=== PATIENT | male | born 1965 | race American Indian/Alaskan Native ===

== ENCOUNTER 2021-05-04 03:50 | Inpatient (IN) | payer OTHER, MEDICARE ==
[2021-05-04 04:48] LABS: Basophils # (Auto) 0.1 K/mm3 (0.0-0.1); Eosinophils # (Auto) 0.1 K/mm3 (0.0-0.4); Eosinophils % (Auto) 0.9 % (0.0-4.3); Monocytes # (Auto) 0.8 K/mm3 (0.0-0.8); Monocytes % (Auto) 7.2 % (0.0-7.3)
[2021-05-04 05:09] LABS: Hematocrit 41.7 % (35.5-45.6); Hemoglobin 13.9 gm/dl (11.8-15.2); Mean Corpuscular HGB Conc 33 % (32-34); Mean Corpuscular Volume 92 fl (84-94); Platelet Count 180 K/mm3 (140-440); Red Blood Count 4.52 M/mm3 (3.65-5.03); Red Cell Distribution Width 13.4 % (13.2-15.2)
[2021-05-04 05:10] LABS: Basophils % (Auto) 0.6 % (0.0-1.8); Lymphocytes # (Auto) 1.8 K/mm3 (1.2-5.4); Lymphocytes % (Auto) 15.3 % (13.4-35.0)
--- NOTE | 2021-05-04 05:27 | XRay Report ---
CHEST 1 VIEW, 05/04/2021 4:34 AM CLINICAL INFORMATION/INDICATION: Chest pain COMPARISON: None. FINDINGS: SUPPORT DEVICES: None. HEART: The cardiac silhouette is mildly enlarged. LUNGS/PLEURA: There is bilateral perihilar interstitial prominence. No focal consolidation or large p leural effusion. ADDITIONAL FINDINGS: No additional acute findings. IMPRESSION: 1. Enlargement of the cardiac silhouette. 2. Perihilar interstitial prominence suggesting pulmonary vascular congestion without evidence of ove rt pulmonary edema. Signer Name: Grace Conway MD Signed: 05/04/2021 5:22 AM Workstation Name: [id number]
[2021-05-04 05:46] LABS: Alanine Aminotransferase 19 units/L (7-56); Albumin 4.3 g/dL (3.9-5); BUN/Creatinine Ratio 15; Blood Urea Nitrogen 19 mg/dL (9-20); Calcium 9.2 mg/dL (8.4-10.2); Hemolysis Index 15
[2021-05-04] MEDS ORDERED: FUROSEMIDE 40 MG/4 ML INJ IV ONE (07:35)
--- NOTE | 2021-05-04 07:37 | Emergency Department Report ---
HPI - General Chief Complaint: Chest Pain Time Seen by Provider: 05/04/21 07:24 - HPI HPI: 56-year-old male with past medical history significant for hypertension, DM 2, seizure disorder, and coronary artery disease status post cardiac bypass presents complaining of approximately 2 days of progressive dry cough and shortness of breath. He also reports that he has been sweating profusely over this time which caused him concerned. He noticed today that he was nauseated and had one episode of emesis. He stated that with the nausea and his other symptoms this feels just like his prior ME. He however denies any chest pain whatsoever. He also denies any associated headache, vision change, neck pain, back pain, syncope, palpitations, abdominal pain, or any other complaints. ED Past Medical Hx - Past Medical History Previous Medical History?: Yes Hx Hypertension: Yes Hx CVA: Yes (2017) Hx Heart Attack/AMI: Yes Hx Congestive Heart Failure: No Hx Diabetes: Yes Hx Deep Vein Thrombosis: No Hx Pulmonary Embolism: Yes (anx/dep) Hx GERD: No Hx Liver Disease: No Hx Renal Disease: No Hx of Cancer: No Hx Sickle Cell Disease: No Hx Arthritis: No Hx Seizures: No Hx Kidney Stones: No Hx Psychiatric Treatment: No Hx Asthma: No Hx COPD: No Hx Tuberculosis: No Hx Dementia: No Hx HIV: No - Surgical History Past Surgical History?: Yes Hx Coronary Stent: Yes (2007) Hx Open Heart Surgery: Yes (2007) Hx Pacemaker: No Hx Internal Defibrillator: No Hx Cholecystectomy: No Hx Appendectomy: No Hx Breast Surgery: No - Social History Smoking Status: Never Smoker Substance Use Type: None - Medications Home Medications: Home Medications Medication Instructions Recorded Confirmed Last Taken Type Aspirin [Aspirin BABY CHEW TAB] 81 mg PO QDAY 05/04/21 05/04/21 05/03/21 History Atorvastatin Calcium [Lipitor] 80 mg PO DAILY 05/04/21 05/04/21 05/03/21 History Metformin HCl [metFORMIN] 1,000 mg PO BID 05/04/21 05/04/21 05/03/21 History Metoprolol [Lopressor] 25 mg PO BID 05/04/21 05/04/21 05/03/21 History glipiZIDE [Glucotrol] 10 mg PO BID 05/04/21 05/04/21 05/03/21 History hydroCHLOROthiazide [HCTZ] 25 mg PO QDAY 05/04/21 05/04/21 05/03/21 History levETIRAcetam [Keppra TAB] 500 mg PO BID 05/04/21 05/04/21 05/03/21 History ED Review of Systems ROS: Stated complaint: SWEATS/SOB/SINUS PRESSURE Other details as noted in HPI Constitutional: denies: chills, fever Eyes: denies: eye pain, vision change ENT: denies: throat pain, congestion Respiratory: cough, shortness of breath Cardiovascular: denies: chest pain, syncope Gastrointestinal: nausea, vomiting. denies: abdominal pain Musculoskeletal: denies: back pain, myalgia Skin: denies: rash Neurological: denies: headache, weakness, numbness Physical Exam - Physical Exam Vital Signs: Vital Signs 05/04/21 05/04/21 03:57 04:01 Temperature 99.0 F 99.0 F Pulse Rate 107 H Respiratory 16 14 Rate Blood Pressure 199/138 199/138 O2 Sat by Pulse 94 Oximetry Physical Exam: GENERAL: Well developed and well nourished. HEENT: Normocephalic. No obvious signs of trauma. Moist mucous membranes. EYES: Extraocular movements are intact. Pupils are equal round and reactive to light bilaterally NECK: Supple. Trachea is midline. LUNGS: Very tachypneic but not in distress. Equal chest rise bilaterally. There are bibasilar rales up to the mid lungs. HEART/CARDIOVASCULAR: Tachycardic but with regular rhythm. No murmurs or rubs. VASCULAR: 2+ peripheral pulses. Cap refill < 2 seconds. Bilateral lower extremities with 2+ pitting edema ABDOMEN: Abdomen is soft and nondistended. There is no significant tenderness, guarding or rebound. SKIN: Skin is warm and dry NEURO: Patient is awake, alert, and oriented. neuroscience director na II-XII grossly intact. No focal deficits. Normal motor and sensory exam throughout. Normal speech. MUSCULOSKELETAL: No obvious deformities. No significant tenderness. Normal ROM throughout. BACK/SPINE: No midline tenderness or step-offs of the C/T/L spine. ED Course Vital Signs 05/04/21 05/04/21 03:57 04:01 Temperature 99.0 F 99.0 F Pulse Rate 107 H Respiratory 16 14 Rate Blood Pressure 199/138 199/138 O2 Sat by Pulse 94 Oximetry ED Medical Decision Making - Lab Data Result diagrams: 05/04/21 04:29 05/04/21 04:29 Labs 05/04/21 05/04/21 05/04/21 04:29 04:29 07:17 WBC 11.8 H RBC 4.52 Hgb 13.9 Hct 41.7 MCV 92 MCH 31 MCHC 33 RDW 13.4 Plt Count 180 Lymph % (Auto) 15.3 [place] % (Auto) 7.2 Eos % (Auto) 0.9 Baso % (Auto) 0.6 Lymph # (Auto) 1.8 [place] # (Auto) 0.8 Eos # (Auto) 0.1 Baso # (Auto) 0.1 Seg Neutrophils % 76.0 H Seg Neutrophils # 8.9 H Sodium 142 Potassium 4.1 Chloride 104.6 Carbon Dioxide 19 L Anion Gap 23 BUN 19 Creatinine 1.3 Estimated GFR 58 BUN/Creatinine Ratio 15 Glucose 229 H Calcium 9.2 Total Bilirubin 0.50 AST 16 ALT 19 Alkaline Phosphatase 91 Troponin T < 0.010 0.115 H* D NT-Pro-B Natriuret Pep Total Protein 6.9 Albumin 4.3 Albumin/Globulin Ratio 1.7 05/04/21 07:17 WBC RBC Hgb Hct MCV MCH MCHC RDW Plt Count Lymph % (Auto) [place] % (Auto) Eos % (Auto) Baso % (Auto) Lymph # (Auto) [place] # (Auto) Eos # (Auto) Baso # (Auto) Seg Neutrophils % Seg Neutrophils # Sodium Potassium Chloride Carbon Dioxide Anion Gap BUN Creatinine Estimated GFR BUN/Creatinine Ratio Glucose Calcium Total Bilirubin AST ALT Alkaline Phosphatase Troponin T NT-Pro-B Natriuret Pep 2789 H Total Protein Albumin Albumin/Globulin Ratio - EKG Data -: EKG Interpreted by Sc - EKG Data 05/04/21 07:38 Normal sinus rhythm. Normal axis. Right bundle branch block. Otherwise normal intervals. No significant ST segment abnormalities. Inverted T waves associated with right bundle branch block noted - Radiology Data CHEST 1 VIEW, 05/04/2021 4:34 AM CLINICAL INFORMATION/INDICATION: Chest pain COMPARISON: None. FINDINGS: SUPPORT DEVICES: None. HEART: The cardiac silhouette is mildly enlarged. LUNGS/PLEURA: There is bilateral perihilar interstitial prominence. No focal consolidation or large pleural effusion. ADDITIONAL FINDINGS: No additional acute findings. IMPRESSION: 1. Enlargement of the cardiac silhouette. 2. Perihilar interstitial prominence suggesting pulmonary vascular congestion without evidence of overt pulmonary edema. Signer Name: Grace Conway MD Signed: 05/04/2021 4:22 AM Workstation Name: [id number] - Medical Decision Making 56-year-old male with history of CAD presents complaining of 2 days of progressive dry cough, shortness of breath, and diaphoresis as well as 1 episode of nausea plus vomiting this a.m. which prompted the patient to come to the emergency room because he says this feels just like his prior ME. On initial assessment, the patient is tachypneic but not in distress. Physical examination reveals 2+ pitting edema bilateral lower extremities as well as bilateral basilar rales. Work-up in triage consisted of labs and x-ray. His labs are notable for bicarb of 19. His creatinine is 1.3 from unknown baseline. Chest x-ray reveals bilateral perihilar interstitial prominence and cardiomegaly typical of CHF with pulmonary edema. Initial troponin is negative. He is afebrile and with normal vital signs. He is not tachycardic. His oxygen saturation is normal on room air. Nonetheless, I will order repeat tropes as well as BNP. We will administer 40 mg of IV Lasix and 162 mg of aspirin. At 8:40 AM, I was informed that the patient's second troponin level is elevated at 0.11 with normal creatinine. We will start heparin drip for NSTEMI. On repeat assessment of the patient at 8:55 AM, he reports that he feels much better. His symptoms are almost resolved. Nonetheless in the setting of his positive troponin will admit to medicine for further work-up and management of possible ME and likely new onset CHF. All this was discussed with the patient who expressed understanding agreement with the plan of care. Critical care attestation.: If time is entered above; I have spent that time in minutes in the direct care of this critically ill patient, excluding procedure time. ED Disposition Clinical Impression: Non-ST elevated myocardial infarction, Hyperglycemia Acute exacerbation of congestive heart failure Qualifiers: Heart failure type: unspecified Qualified Code(s): I50.9 - Heart failure, unspecified Disposition: OP ADMIT IP TO THIS HOSP Is pt being admited?: Yes Condition: Stable Referrals: YOANDY RIVERA MD [Primary Care Provider] - 3-5 Days
[2021-05-04] MEDS ORDERED: NITROGLYCERIN 0.4 MG TAB SUBL SL ONE (07:41)
[2021-05-04] MEDS ORDERED: ASPIRIN 81 MG TAB CHEW PO ONE (07:42)
[2021-05-04] MEDS ORDERED: HEPARIN 10,000 UNITS/10 ML VIAL IV PRN ×2 (08:58→15:47)
[2021-05-04 09:07] LABS: Chol/HDL Ratio 2.03 %
[2021-05-04 10:50] LABS: INR 0.98 (0.87-1.13)
[2021-05-04 10:51] LABS: Partial Thromboplastin Time 36.4 Sec. (24.2-36.6)
--- NOTE | 2021-05-04 11:05 | History and Physical Report ---
History of Present Illness Date of examination: 05/04/21 Date of admission: 05/04/21 Chief complaint: Acute chest pain History of present illness: 56-year-old -[place] male with a past medical history of CAD with history of CABG x3 in 2007, heart failure unspecified, DM2, hypertension, hyperlipidemia, seizure disorder, who presents with acute chest pain. Patient states in the last 12 hours, started to have substernal chest pain, more so on the left side, nonradiating, 4/10 pain, dull and sharp, intermittent, worse with coughing. This morning patient started to have diaphoresis, decided to come to the emergency department, had emesis x1, no hematemesis, no weakness in upper or lower extremities, no visual changes, no seizure activity. Came to [facility] for evaluation, Blood pressure 170/98, heart rate 80, respiratory rate up to 35. Labs significant for elevated troponin of 0.115. proBNP 2789. Chest x-ray did show pulmonary congestion, EKG showed right bundle branch block with some T wave inversion. Patient was started on heparin drip, cardiology was consulted for NSTEMI, patient given nitro and furosemide. P atient states last stress test was about 2 years ago at the [place] in [facility]. Past History Past Medical History: other (Heart failure unspecified, CAD, DM2, HTN, HLD, seizure disorder) Past Surgical History: Other (CABG x3 in 2007) Social history: other (Never smoker, patient drinks 1 beer a night, no illicit drug use) Family history: other (CAD, diabetes mellitus type 2, hypertension) Medications and Allergies Allergies Allergy/AdvReac Type Severity Reaction Status Date / Time No Known Allergies Allergy Unverified 05/04/21 04:11 Home Medications Medication Instructions Recorded Confirmed Last Taken Type Aspirin [Aspirin BABY CHEW TAB] 81 mg PO QDAY 05/04/21 05/04/21 05/03/21 History Atorvastatin Calcium [Lipitor] 80 mg PO DAILY 05/04/21 05/04/21 05/03/21 History Metformin HCl [metFORMIN] 1,000 mg PO BID 05/04/21 05/04/21 05/03/21 History Metoprolol [Lopressor] 25 mg PO BID 05/04/21 05/04/21 05/03/21 History glipiZIDE [Glucotrol] 10 mg PO BID 05/04/21 05/04/21 05/03/21 History hydroCHLOROthiazide [HCTZ] 25 mg PO QDAY 05/04/21 05/04/21 05/03/21 History levETIRAcetam [Keppra TAB] 500 mg PO BID 05/04/21 05/04/21 05/03/21 History Active Meds: Active Medications Acetaminophen (Acetaminophen 325 Mg Tab) 650 mg PO Q4H PRN PRN Reason: Pain MILD(1-3)/Fever >100.5/ZIEGLER Atorvastatin Calcium (Atorvastatin 40 Mg Tab) 80 mg PO QHS BRENDA Furosemide (Furosemide 40 Mg/4 Ml Inj) 40 mg IV BID BRENDA Stop: 05/07/21 21:59 Heparin Sodium (Porcine) (Heparin 10,000 Units/10 Ml Vial) 3,300 unit 40 unit/kg (3300 unit) IV Q6H PRN PRN Reason: Anti-Xa Assay<0.1 units/ml Last Admin: 05/04/21 09:48 Dose: 3,300 unit Documented by: Hydralazine HCl (Hydralazine 20 Mg/1 Ml Inj) 10 mg IV Q3HR PRN PRN Reason: Blood Pressure Hydrochlorothiazide (Hydrochlorothiazide 25 Mg Tab) 25 mg PO QDAY [facility] Labetalol HCl (Labetalol 20 Mg/4 Ml Inj) 10 mg IV ONCE ONE Stop: 05/04/21 11:00 Levetiracetam (Levetiracetam 500 Mg Tab) 500 mg PO BID [facility] Lisinopril (Lisinopril 20 Mg Tab) 20 mg PO DAILY [facility] Metoprolol Tartrate (Metoprolol Tartrate 25 Mg Tab) 25 mg PO BID [facility] Morphine Sulfate (Morphine 4 Mg/1 Ml Inj) 4 mg IV Q4H PRN PRN Reason: Pain , Severe (7-10) Naloxone HCl (Naloxone 0.4 Mg/1 Ml Inj) 0.1 mg IV Q2MIN PRN PRN Reason: Res Rate </= 8 or 02 SAT < 92% Ondansetron HCl (Ondansetron 4 Mg/2 Ml Inj) 4 mg IV Q8H PRN PRN Reason: Nausea And Vomiting Oxycodone/Acetaminophen (Oxycodone /Acetaminophen 5-325mg Tab) 1 tab PO Q6H PRN PRN Reason: Pain, Moderate (4-6) Sodium Chloride (Sodium Chloride 0.9% 10 Ml Flush Syringe) 10 ml IV BID BRENDA Sodium Chloride (Sodium Chloride 0.9% 10 Ml Flush Syringe) 10 ml IV PRN PRN PRN Reason: LINE FLUSH Review of Systems All systems: negative Cardiovascular: chest pain Gastrointestinal: nausea, vomiting Exam - Physical Exam Narrative exam: General appearance: no acute distress, well-nourished EENT: PERRL, EOM intact, hearing intact, clear oral mucosa Neck: Present: supple, normal ROM Respiratory: Minimal crackles heard in left lower lung base. No wheezes, no rales Cardiovascular: Regular rate/rhythm, Normal S1 & S2. No gallop, rub Extremities: no ischemia, bilateral +1 pitting edema in lower extremities, normal temperature, normal color, Full ROM Abdominal: soft, no tenderness, non-distended, normal bowel sounds Integumentary: Present: clear, warm, dry no wounds, no erythema noted Psychiatric: appropriate mood/affect, intact judgment & insight Neurologic: CNII-XII intact, moves all extremities, no sensory or motor ab normalities - Constitutional Vitals: Temp Pulse Resp BP Pulse Ox 99.0 F 84 33 H 170/100 95 05/04/21 04:01 05/04/21 09:07 05/04/21 09:00 05/04/21 09:07 05/04/21 09:00 HEART Score - HEART Score Troponin: Troponin T 0.115 ng/mL (0.00-0.029) H* D 05/04/21 07:17 Results - Labs CBC & Chem 7: 05/04/21 04:29 05/04/21 04:29 Labs: Laboratory Last Values WBC 11.8 K/mm3 (4.5-11.0) H 05/04/21 04:29 RBC 4.52 M/mm3 (3.65-5.03) 05/04/21 04:29 Hgb 13.9 gm/dl (11.8-15.2) 05/04/21 04:29 Hct 41.7 % (35.5-45.6) 05/04/21 04:29 MCV 92 fl (84-94) 05/04/21 04:29 MCH 31 pg (28-32) 05/04/21 04:29 MCHC 33 % (32-34) 05/04/21 04:29 RDW 13.4 % (13.2-15.2) 05/04/21 04:29 Plt Count 180 K/mm3 (140-440) 05/04/21 04:29 Lymph % (Auto) 15.3 % (13.4-35.0) 05/04/21 04:29 [place] % (Auto) 7.2 % (0.0-7.3) 05/04/21 04:29 Eos % (Auto) 0.9 % (0.0-4.3) 05/04/21 04:29 Baso % (Auto) 0.6 % (0.0-1.8) 05/04/21 04:29 Lymph # (Auto) 1.8 K/mm3 (1.2-5.4) 05/04/21 04:29 [place] # (Auto) 0.8 K/mm3 (0.0-0.8) 05/04/21 04:29 Eos # (Auto) 0.1 K/mm3 (0.0-0.4) 05/04/21 04:29 Baso # (Auto) 0.1 K/mm3 (0.0-0.1) 05/04/21 04:29 Seg Neutrophils % 76.0 % (40.0-70.0) H 05/04/21 04:29 Seg Neutrophils # 8.9 K/mm3 (1.8-7.7) H 05/04/21 04:29 PT 13.6 Sec. (12.2-14.9) 05/04/21 09:38 INR 0.98 (0.87-1.13) 05/04/21 09:38 APTT 36.4 Sec. (24.2-36.6) 05/04/21 09:38 Sodium 142 mmol/L (137-145) 05/04/21 04:29 Potassium 4.1 mmol/L (3.6-5.0) 05/04/21 04:29 Chloride 104.6 mmol/L (98-107) 05/04/21 04:29 Carbon Dioxide 19 mmol/L (22-30) L 05/04/21 04:29 Anion Gap 23 mmol/L 05/04/21 04:29 BUN 19 mg/dL (9-20) 05/04/21 04:29 Creatinine 1.3 mg/dL (0.8-1.3) 05/04/21 04:29 Estimated GFR 58 ml/min 05/04/21 04:29 BUN/Creatinine Ratio 15 % 05/04/21 04:29 Glucose 229 mg/dL (75-100) H 05/04/21 04:29 Calcium 9.2 mg/dL (8.4-10.2) 05/04/21 04:29 Total Bilirubin 0.50 mg/dL (0.1-1.2) 05/04/21 04:29 AST 16 units/L (5-40) 05/04/21 04:29 ALT 19 units/L (7-56) 05/04/21 04:29 Alkaline Phosphatase 91 units/L (35-129) 05/04/21 04:29 Troponin T 0.115 ng/mL (0.00-0.029) H* D 05/04/21 07:17 NT-Pro-B Natriuret Pep 2789 pg/mL (0-900) H 05/04/21 07:17 Total Protein 6.9 g/dL (6.3-8.2) 05/04/21 04:29 Albumin 4.3 g/dL (3.9-5) 05/04/21 04:29 Albumin/Globulin Ratio 1.7 % 05/04/21 04:29 Triglycerides 68 mg/dL (2-149) 05/04/21 07:17 Cholesterol 110 mg/dL (50-199) 05/04/21 07:17 LDL Cholesterol Direct 54 mg/dL (50-130) 05/04/21 07:17 HDL Cholesterol 54 mg/dL (40-59) 05/04/21 07:17 Cholesterol/HDL Ratio 2.03 % 05/04/21 07:17 Assessment and Plan Assessment and plan: 56-year-old -[place] male with past medical history as above who presents with acute chest pain NSTEMI type I versus type II History of CABG x3 in 2007 Mild elevated troponin Patient started on heparin drip EKG reviewed, no STEMI, right bundle branch block noted Cardiology consulted will await recommendations pertaining to diagnostic tests Heart failure unspecified Elevated BNP Cardiology consulted, patient will most likely need a echocardiogram Furosemide 40 mg twice daily daily Diabetes mellitus type 2 Pending A1c Insulin sliding scale Hypertension Labetalol IV and hydralazine IV as needed with parameters Continue lisinopril, metoprolol, hydrochlorothiazide History of seizure disorder Levetiracetam 500 mg twice daily IV DVT prophylaxis: Heparin drip CODE STATUS: Full Disposition: Continue to evaluate patient for NSTEMI, cardiology recommendations pending. VTE prophylaxis?: Chemical Plan of care discussed with patient/family: Yes
[2021-05-04] MEDS ORDERED: DEXTROSE 50% IN WATER (25GM) 50 ML SYRINGE IV PRN (11:22)
[2021-05-04] MEDS ORDERED: INSULIN LISPRO 100 UNIT/ML SUB-Q ONE (11:25)
[2021-05-04] MEDS ORDERED: hydroCHLOROthiazide 25 MG TAB PO SCH (11:30)
[2021-05-04] MEDS: LISINOPRIL 20 MG TAB PO SCH (11:35)
[2021-05-04] MEDS ORDERED: ONDANSETRON 4 MG/2 ML INJ IV PRN (12:00)
[2021-05-04] MEDS ORDERED: NITROGLYCERIN 0.4 MG TAB SUBL SL PRN (12:00)
[2021-05-04] MEDS ORDERED: levETIRAcetam 500 MG TAB PO SCH (12:00)
[2021-05-04] MEDS ORDERED: MORPHINE 4 MG/1 ML INJ IV PRN (12:00)
[2021-05-04] MEDS ORDERED: NALOXONE 0.4 MG/1 ML INJ IV PRN (12:00)
[2021-05-04] MEDS: INSULIN REGULAR, HUMAN 100 UNITS/1 ML SUB-Q SCH ×3 (12:23→22:24)
[2021-05-04] MEDS ORDERED: oxyCODONE /ACETAMINOPHEN 5-325MG TAB PO PRN (13:00)
[2021-05-04] MEDS: hydrALAZINE 20 MG/1 ML INJ IV PRN ×2 (15:08→21:23)
--- NOTE | 2021-05-04 15:33 | Consultation ---
History of Present Illness Consult date: 05/04/21 Requesting physician: SHELL WHITE Consult reason: chest pain, elevated troponin History of present illness: This patient is a 56-year-old male with a significant history of coronary artery disease and AMI with CABG x3 in 2007, heart failure, diabetes, hypertension, hyper lipid, seizure disorder. He is previously unknown to our practice and is not followed by cardiology. He is followed by Dr. Miramontes PCP with [place] [facility]. Patient presents to [facility] after episode of chest pain woke him from sleep last night. Patient describes chest pain as same as he felt with last AMI, substernal to left-sided chest pain, nonradiating, 4 out of 10, dull, intermittent, worse with cough. Initial troponin was negative but subsequent troponins have elevated to NSTEMI. At time of interview patient is chest pain-free having resolved after nitroglycerin administration and denies any weakness, dizziness, shortness of breath, abdominal pain, N/V/D, recent illness or known exposure. Patient states he underwent cardiac stress testing approximately 2 years ago with negative results. He has recently moved here from [facility] and has not established himself with local healthcare co ovid. BNP is noted to be elevated on admission. Past History Past Medical History: other (Heart failure unspecified, CAD, DM2, HTN, HLD, seizure disorder) Past Surgical History: Other (CABG x3 in 2007) Social history: other (Never smoker, patient drinks 1 beer a night, no illicit drug use) Family history: other (CAD, diabetes mellitus type 2, hypertension) Medications and Allergies Allergies Allergy/AdvReac Type Severity Reaction Status Date / Time No Known Allergies Allergy Unverified 05/04/21 04:11 Home Medications Medication Instructions Recorded Confirmed Last Taken Type Aspirin [Aspirin BABY CHEW TAB] 81 mg PO QDAY 05/04/21 05/04/21 05/03/21 History Atorvastatin Calcium [Lipitor] 80 mg PO DAILY 05/04/21 05/04/21 05/03/21 History Metformin HCl [metFORMIN] 1,000 mg PO BID 05/04/21 05/04/21 05/03/21 History Metoprolol [Lopressor] 25 mg PO BID 05/04/21 05/04/21 05/03/21 History glipiZIDE [Glucotrol] 10 mg PO BID 05/04/21 05/04/21 05/03/21 History hydroCHLOROthiazide [HCTZ] 25 mg PO QDAY 05/04/21 05/04/21 05/03/21 History levETIRAcetam [Keppra TAB] 500 mg PO BID 05/04/21 05/04/21 05/03/21 History Active Meds: Active Medications Acetaminophen (Acetaminophen 325 Mg Tab) 650 mg PO Q4H PRN PRN Reason: Pain MILD(1-3)/Fever >100.5/ZIEGLER Atorvastatin Calcium (Atorvastatin 40 Mg Tab) 80 mg PO QHS [facility] Dextrose (Dextrose 50% In Water (25gm) 50 Ml Syringe) 50 ml IV Q30MIN PRN; Protocol PRN Reason: Hypoglycemia Furosemide (Furosemide 40 Mg/4 Ml Inj) 40 mg IV BID [facility] Stop: 05/07/21 21:59 Heparin Sodium (Porcine) (Heparin 10,000 Units/10 Ml Vial) 3,300 unit 40 unit/kg (3300 unit) IV Q6H PRN PRN Reason: Anti-Xa Assay<0.1 units/ml Last Admin: 05/04/21 09:48 Dose: 3,300 unit Documented by: Hydralazine HCl (Hydralazine 20 Mg/1 Ml Inj) 10 mg IV Q3H PRN PRN Reason: Blood Pressure Last Admin: 05/04/21 15:08 Dose: 10 mg Documented by: Hydrochlorothiazide (Hydrochlorothiazide 25 Mg Tab) 25 mg PO QDAY [facility] Last Admin: 05/04/21 11:35 Dose: 25 mg Documented by: Levetiracetam 500 mg/ Dextrose 105 mls @ 400 mls/hr IV Q12HR [facility] Insulin Human Regular (Insulin Regular, Human 100 Units/1 Ml) 0 units SUB-Q ACHS [facility]; Protocol Last Admin: 05/04/21 12:23 Dose: Not Given Documented by: Lisinopril (Lisinopril 20 Mg Tab) 20 mg PO DAILY [facility] Last Admin: 05/04/21 11:35 Dose: 20 mg Documented by: Metoprolol Tartrate (Metoprolol Tartrate 25 Mg Tab) 25 mg PO BID [facility] Morphine Sulfate (Morphine 4 Mg/1 Ml Inj) 4 mg IV Q4H PRN PRN Reason: Pain , Severe (7-10) Naloxone HCl (Naloxone 0.4 Mg/1 Ml Inj) 0.1 mg IV Q2MIN PRN PRN Reason: Res Rate </= 8 or 02 SAT < 92% Nitroglycerin (Nitroglycerin 0.4 Mg Tab Subl) 0.4 mg SL .Q5MIN PRN PRN Reason: Chest Pain Ondansetron HCl (Ondansetron 4 Mg/2 Ml Inj) 4 mg IV Q8H PRN PRN Reason: Nausea And Vomiting Oxycodone/Acetaminophen (Oxycodone /Acetaminophen 5-325mg Tab) 1 tab PO Q6H PRN PRN Reason: Pain, Moderate (4-6) Sodium Chloride (Sodium Chloride 0.9% 10 Ml Flush Syringe) 10 ml IV BID BRENDA Sodium Chloride (Sodium Chloride 0.9% 10 Ml Flush Syringe) 10 ml IV PRN PRN PRN Reason: LINE FLUSH Review of Systems Constitutional: no weight loss, no weight gain, no fever, no chills, no sweats Ears, nose, mouth and throat: no ear pain, no ear discharge, no decreased hearing, no nose pain, no nasal congestion, no nasal discharge Cardiovascular: chest pain, no orthopnea, no palpitations, no rapid/irregular heart beat, no edema, no syncope, no lightheadedness, no shortness of breath, no dyspnea on exertion, no paroxysmal nocturnal dyspnea, no claudication, no phlebitis, no high blood pressure, no leg edema Respiratory: cough, no hemoptysis, no shortness of breath, no dyspnea on exertion Gastrointestinal: no abdominal pain, no nausea, no vomiting, no diarrhea Genitourinary Male: no flank pain Musculoskeletal: no neck stiffness, no neck pain, no shooting arm pain, no arm numbness/tingling, no low back pain Integumentary: no rash, no pruritis, no redness, no sores, no wounds Neurological: no head injury, no paralysis, no weakness, no parathesias, no numbness, no tingling, no seizures, no syncope Psychiatric: no anxiety Endocrine: no cold intolerance, no heat intolerance Hematologic/Lymphatic: no easy bruising, no easy bleeding Allergic/Immunologic: no urticaria Physical Examination Last Vital Signs Temp 99.0 F 05/04/21 04:01 Pulse 88 05/04/21 15:08 Resp 22 05/04/21 15:00 BP 188/92 05/04/21 15:08 Pulse Ox 98 05/04/21 15:00 General appearance: no acute distress HEENT: Positive: PERRL, Normocephaly, Mucus Membranes Moist Neck: Positive: neck supple, trachea midline Cardiac: Positive: Reg Rate and Rhythm, S1/S2 Lungs: Positive: Normal Exam, Normal Breath Sounds Neuro: Positive: Grossly Intact Abdomen: Positive: Unremarkable, Soft Skin: Negative: Rash, Wound Musculoskeletal: No Pain Extremities: Present: upper extr. pulses, lower extr. pulses, +1 Edema Results 05/04/21 04:29 05/04/21 04:29 Cardiac Enzymes 05/04/21 Range/Units 04:29 AST 16 (5-40) units/L Coagulation 05/04/21 Range/Units 09:38 PT 13.6 (12.2-14.9) Sec. INR 0.98 (0.87-1.13) APTT 36.4 (24.2-36.6) Sec. Lipids 05/04/21 Range/Units 07:17 Triglycerides 68 (2-149) mg/dL Cholesterol 110 (50-199) mg/dL HDL Cholesterol 54 (40-59) mg/dL Cholesterol/HDL Ratio 2.03 % CBC 05/04/21 Range/Units 04:29 WBC 11.8 H (4.5-11.0) K/mm3 RBC 4.52 (3.65-5.03) M/mm3 Hgb 13.9 (11.8-15.2) gm/dl Hct 41.7 (35.5-45.6) % Plt Count 180 (140-440) K/mm3 Lymph # (Auto) 1.8 (1.2-5.4) K/mm3 [place] # (Auto) 0.8 (0.0-0.8) K/mm3 Eos # (Auto) 0.1 (0.0-0.4) K/mm3 Baso # (Auto) 0.1 (0.0-0.1) K/mm3 Comprehensive Metabolic Panel 05/04/21 Range/Units 04:29 Sodium 142 (137-145) mmol/L Potassium 4.1 (3.6-5.0) mmol/L Chloride 104.6 (98-107) mmol/L Carbon Dioxide 19 L (22-30) mmol/L BUN 19 (9-20) mg/dL Creatinine 1.3 (0.8-1.3) mg/dL Glucose 229 H (75-100) mg/dL Calcium 9.2 (8.4-10.2) mg/dL AST 16 (5-40) units/L ALT 19 (7-56) units/L Alkaline Phosphatase 91 (35-129) units/L Total Protein 6.9 (6.3-8.2) g/dL Albumin 4.3 (3.9-5) g/dL - Imaging and Cardiology Echo: pending EKG interpretations - Telemetry EKG Rhythm: Sinus Tachycardia - EKG Sinus rhythms and dysrhythmias: sinus rhythm AV and intraventricular conduction: right bundle branch block Assessment and Plan Chest pain in setting of NSTEMI and significant history of CAD, AMI with CABG x3 * Patient experiencing typical chest pain which resolved after nitro admin istration. Initiate Imdur 30 mg daily * Troponins are elevated and trending upward. Continue to trend CE's * Repeat serial 12 leads * Plan for cardiac cath on Sunday. Initiate heparin drip standard intensity titration. N.p.o. after midnight tomorrow. Acute on chronic heart failure in setting of cardiomyopathy * Echocardiogram is pending * Bilateral lower extremity edema 1-2+ is noted. * Optimize volume control. Discontinue hydrochlorothiazide, continue Lasix 40 mg IV twice daily. Repeat BMP in a.m. Hypertension * Optimize antihypertensive regimen: Increase metoprolol to 50 mg twice daily, continue lisinopril 20 mg daily DVT prophylaxis * Heparin gtt. Plan for cath on Sunday, continue on heparin gtt, echo pending. Will follow This patient was seen in conjunction with Dr Asencio who agrees with this assessment and plan of care - Patient Problems (1) Non-ST elevated myocardial infarction Current Visit: Yes Status: Acute (2) Acute exacerbation of congestive heart failure Current Visit: Yes Status: Acute Qualifiers: Heart failure type: unspecified Qualified Code(s): I50.9 - Heart failure, unspecified (3) Coronary artery disease Current Visit: Yes Status: Acute (4) History of acute myocardial infarction Current Visit: Yes Status: Chronic (5) Seizure disorder Current Visit: Yes Status: Chronic (6) Hypertension Current Visit: Yes Status: Chronic (7) Diabetes mellitus Current Visit: Yes Status: Chronic (8) Anxiety Current Visit: Yes Status: Chronic
[2021-05-04] MEDS ORDERED: HEPARIN 10,000 UNITS/10 ML VIAL IV ONE (16:00)
[2021-05-04] MEDS ORDERED: HEPARIN/ 0.45% NACL DRIP 25,000 UNIT/500 ML BAG IV SCH ×2 (16:00→21:00)
[2021-05-04 16:09] LABS: Hematocrit 47.6 % (35.5-45.6); Hemoglobin 15.8 gm/dl (11.8-15.2)
[2021-05-04 16:21] LABS: INR 0.94 (0.87-1.13)
[2021-05-04] MEDS ORDERED: METOPROLOL TARTRATE 25 MG TAB PO SCH ×2 (22:00)
[2021-05-04] MEDS: FUROSEMIDE 40 MG/4 ML INJ IV SCH (22:08)
[2021-05-04] MEDS: METOPROLOL TARTRATE 50 MG TAB PO SCH (22:09)
[2021-05-04 23:47] LABS: Hematocrit 43.8 % (35.5-45.6); Hemoglobin 14.8 gm/dl (11.8-15.2)
[2021-05-04 23:59] LABS: INR 1.02 (0.87-1.13)
[2021-05-05] LABS: Partial Thromboplastin Time 48.6 Sec. (24.2-36.6)
[2021-05-05] MEDS: levETIRAcetam 500 MG in DEXTROSE 5% IN WATER 100 ML IV SCH ×3 (00:49→21:31)
[2021-05-05 03:15] LABS: Hematocrit 40.6 % (35.5-45.6); Mean Corpuscular HGB Conc 35 % (32-34); Mean Corpuscular Volume 91 fl (84-94); Platelet Count 189 K/mm3 (140-440); Red Blood Count 4.45 M/mm3 (3.65-5.03); Red Cell Distribution Width 13.7 % (13.2-15.2)
[2021-05-05 03:35] LABS: BUN/Creatinine Ratio 14; Blood Urea Nitrogen 17 mg/dL (9-20); Calcium 9.4 mg/dL (8.4-10.2); Hemolysis Index 1
[2021-05-05] MEDS ORDERED: HEPARIN 10,000 UNITS/10 ML VIAL IV PRN (09:30)
[2021-05-05] MEDS: HEPARIN/ 0.45% NACL DRIP 25,000 UNIT/500 ML BAG IV SCH (10:01)
[2021-05-05] MEDS: METOPROLOL TARTRATE 50 MG TAB PO SCH ×3 (10:34→21:21)
[2021-05-05] MEDS: LISINOPRIL 20 MG TAB PO SCH (10:34)
[2021-05-05] MEDS: ASPIRIN 325 MG TAB PO SCH (10:34)
[2021-05-05] MEDS: FUROSEMIDE 40 MG/4 ML INJ IV SCH ×2 (10:34→21:22)
[2021-05-05] MEDS: INSULIN REGULAR, HUMAN 100 UNITS/1 ML SUB-Q SCH ×4 (10:40→21:29)
--- NOTE | 2021-05-05 11:06 | Progress Note ---
Assessment and Plan Assessment and plan: 56-year-old -Algerian male with past medical history as above who presents with acute chest pain NSTEMI type I versus type II History of CABG x3 in 2007 Troponins elevated but now stabilized Patient started on heparin drip EKG reviewed, no STEMI, right bundle branch block noted [facility] Heart failure unspecified Elevated BNP Pending echocardiogram report Furosemide 40 mg twice daily daily Diabetes mellitus type 2 Insulin sliding scale Hypertension Labetalol IV and hydralazine IV as needed with parameters Continue lisinopril, metoprolol, Isosorbide mononitrate History of seizure disorder Levetiracetam 500 mg twice daily IV Apical thrombus Seen on echocardiogram Currently on heparin drip Neurology consulted for anticoagulation recommendations History of aneurysm/brain bleed Patient states that he had a aneurysm/brain bleed and was on warfarin at the time, states this was about 2018 Neurologist stated that he should not be on any anticoagulation stronger than aspirin. However after speaking with cardiology, patient has a small apical thrombus per echocardiogram. In addition, if patient needed a cardiac stent, patient will have to be placed on dual anticoagulation. Neurology has been consulted to assess if patient is able to be on anticoagulation at this time. Appreciate any recommendations. DVT prophylaxis: Heparin drip CODE STATUS: Full Disposition: Continue to evaluate patient for NSTEMI History Interval history: 05/05/2021: Patient without any chest pain, tolerating diet, no nausea or vomiting Hospitalist Physical - Physical exam Narrative exam: General appearance: no acute distress, well-nourished EENT: PERRL, EOM intact, hearing intact, clear oral mucosa Neck: Present: supple, normal ROM Respiratory: Lungs clear to auscultation no wheezes, no rales Cardiovascular: Regular rate/rhythm, Normal S1 & S2. No gallop, rub Extremities: no ischemia, bilateral +1 pitting edema in lower extremities, normal temperature, normal color, Full ROM Abdominal: soft, no tenderness, non-distended, normal bowel sounds Integumentary: Present: clear, warm, dry no wounds, no erythema noted Psychiatric: appropriate mood/affect, intact judgment & insight Neurologic: CNII-XII intact, moves all extremities, no sensory or motor abnormalities - Constitutional Vitals: Temp Pulse Resp BP Pulse Ox 98.2 F 83 19 133/93 93 05/05/21 07:45 05/05/21 07:45 05/05/21 07:45 05/05/21 07:45 05/05/21 07:45 General appearance: Present: no acute distress HEART Score - HEART Score Troponin: Troponin T 0.441 ng/mL (0.00-0.029) H* 05/05/21 02:39 Results - Labs CBC & Chem 7: 05/05/21 10:39 05/05/21 02:39 Labs: Laboratory Last Values WBC 8.8 K/mm3 (4.5-11.0) 05/05/21 02:39 RBC 4.45 M/mm3 (3.65-5.03) 05/05/21 02:39 Hgb 14.0 gm/dl (11.8-15.2) 05/05/21 02:39 Hct 40.6 % (35.5-45.6) 05/05/21 02:39 MCV 91 fl (84-94) 05/05/21 02:39 MCH 31 pg (28-32) 05/05/21 02:39 MCHC 35 % (32-34) H 05/05/21 02:39 RDW 13.7 % (13.2-15.2) 05/05/21 02:39 Plt Count 181 K/mm3 (140-440) 05/05/21 10:39 Lymph % (Auto) 15.3 % (13.4-35.0) 05/04/21 04:29 [place] % (Auto) 7.2 % (0.0-7.3) 05/04/21 04:29 Eos % (Auto) 0.9 % (0.0-4.3) 05/04/21 04:29 Baso % (Auto) 0.6 % (0.0-1.8) 05/04/21 04:29 Lymph # (Auto) 1.8 K/mm3 (1.2-5.4) 05/04/21 04:29 [place] # (Auto) 0.8 K/mm3 (0.0-0.8) 05/04/21 04:29 Eos # (Auto) 0.1 K/mm3 (0.0-0.4) 05/04/21 04:29 Baso # (Auto) 0.1 K/mm3 (0.0-0.1) 05/04/21 04:29 Seg Neutrophils % 76.0 % (40.0-70.0) H 05/04/21 04:29 Seg Neutrophils # 8.9 K/mm3 (1.8-7.7) H 05/04/21 04:29 PT 14.0 Sec. (12.2-14.9) 05/04/21 23:04 INR 1.02 (0.87-1.13) 05/04/21 23:04 APTT 48.6 Sec. (24.2-36.6) H 05/04/21 23:04 Heparin Anti-Xa Level 0.18 U.I./ml (0.3-0.7) L 05/05/21 02:39 Sodium 142 mmol/L (137-145) 05/04/21 04:29 Potassium 4.1 mmol/L (3.6-5.0) 05/04/21 04:29 Chloride 99.5 mmol/L (98-107) 05/05/21 02:39 Carbon Dioxide 26 mmol/L (22-30) D 05/05/21 02:39 Anion Gap 17 mmol/L 05/05/21 02:39 BUN 17 mg/dL (9-20) 05/05/21 02:39 Creatinine 1.2 mg/dL (0.8-1.3) 05/05/21 02:39 Estimated GFR > 60 ml/min 05/05/21 02:39 BUN/Creatinine Ratio 14 % 05/05/21 02:39 Glucose 311 mg/dL (75-100) H 05/05/21 02:39 POC Glucose 256 mg/dL (70-105) H 05/05/21 07:53 Hemoglobin A1c 7.3 % (4-6) H 05/05/21 02:39 Calcium 9.4 mg/dL (8.4-10.2) 05/05/21 02:39 Total Bilirubin 0.50 mg/dL (0.1-1.2) 05/04/21 04:29 AST 16 units/L (5-40) 05/04/21 04:29 ALT 19 units/L (7-56) 05/04/21 04:29 Alkaline Phosphatase 91 units/L (35-129) 05/04/21 04:29 Troponin T 0.441 ng/mL (0.00-0.029) H* 05/05/21 02:39 NT-Pro-B Natriuret Pep 2789 pg/mL (0-900) H 05/04/21 07:17 Total Protein 6.9 g/dL (6.3-8.2) 05/04/21 04:29 Albumin 4.3 g/dL (3.9-5) 05/04/21 04:29 Albumin/Globulin Ratio 1.7 % 05/04/21 04:29 Triglycerides 68 mg/dL (2-149) 05/04/21 07:17 Cholesterol 110 mg/dL (50-199) 05/04/21 07:17 LDL Cholesterol Direct 54 mg/dL (50-130) 05/04/21 07:17 HDL Cholesterol 54 mg/dL (40-59) 05/04/21 07:17 Cholesterol/HDL Ratio 2.03 % 05/04/21 07:17 [place]/IV: Voiding Method Urinal Active Medications - Current Medications Current Medications: Generic Name Dose Route Start Last Admin Trade Name Freq PRN Reason Stop Dose Admin Acetaminophen 650 mg 05/04/21 11:30 Acetaminophen 325 Mg Tab PO Q4H PRN Pain MILD(1-3)/Fever >100.5/ZIEGLER Aspirin 325 mg 05/05/21 10:00 05/05/21 10:34 Aspirin 325 Mg Tab PO 325 mg QDAY BRENDA Administration Atorvastatin Calcium 80 mg 05/04/21 22:00 05/04/21 22:08 Atorvastatin 40 Mg Tab PO 80 mg QHS BRENDA Administration Dextrose 50 ml 05/04/21 11:22 Dextrose 50% In Water (25gm) 50 Ml Syringe IV Q30MIN PRN Hypoglycemia Protocol Furosemide 40 mg 05/04/21 22:00 05/05/21 10:34 Furosemide 40 Mg/4 Ml Inj IV 05/07/21 21:59 40 mg BID BRENDA Administration Heparin Sodium (Porcine) 3,500 unit 05/05/21 09:30 Heparin 10,000 Units/10 Ml Vial 40 unit/kg (3500 unit) IV Q6H PRN Anti-Xa Assay < 0.1 units/ml Hydralazine HCl 10 mg 05/04/21 11:30 05/04/21 21:23 Hydralazine 20 Mg/1 Ml Inj IV 10 mg Q3H PRN Administration Blood Pressure Levetiracetam 500 mg/ Dextrose 105 mls @ 400 mls/hr 05/04/21 22:00 05/05/21 11:01 IV 400 mls/hr Q12HR BRENDA Administration Heparin Sodium/Sodium Chloride 25,000 unit in 500 mls @ 20 mls/hr 05/05/21 10:00 05/05/21 10:01 Heparin/ 0.45% Nacl-25,000 Unit/500 Ml IV 1,000 units/hr TITRATE BRENDA 20 mls/hr Administration Protocol 1,000 UNITS/HR Insulin Human Regular 0 units 05/04/21 11:30 05/05/21 10:57 Insulin Regular, Human 100 Units/1 Ml SUB-Q 4 units ACHS BRENDA Administration Protocol Isosorbide Mononitrate 30 mg 05/04/21 17:00 05/05/21 10:34 Isosorbide Mononitrate Er 30 Mg Tab PO 30 mg QDAY BRENDA Administration Lisinopril 20 mg 05/04/21 12:00 05/05/21 10:34 Lisinopril 20 Mg Tab PO 20 mg DAILY BRENDA Administration Metoprolol Tartrate 50 mg 05/04/21 22:00 05/05/21 10:34 Metoprolol Tartrate 50 Mg Tab PO 50 mg BID BRENDA Administration Morphine Sulfate 4 mg 05/04/21 12:00 Morphine 4 Mg/1 Ml Inj IV Q4H PRN Pain , Severe (7-10) Naloxone HCl 0.1 mg 05/04/21 12:00 Naloxone 0.4 Mg/1 Ml Inj IV Q2MIN PRN Res Rate </= 8 or 02 SAT < 92% Nitroglycerin 0.4 mg 05/04/21 12:00 Nitroglycerin 0.4 Mg Tab Subl SL .Q5MIN PRN Chest Pain Ondansetron HCl 4 mg 05/04/21 12:00 05/04/21 20:41 Ondansetron 4 Mg/2 Ml Inj IV 4 mg Q8H PRN Administration Nausea And Vomiting Oxycodone/Acetaminophen 1 tab 05/04/21 13:00 Oxycodone /Acetaminophen 5-325mg Tab PO Q6H PRN Pain, Moderate (4-6) Pseudoephedrine/Acetam/Chlorphenir 10 ml 05/05/21 00:42 Guaifenesin/Codeine 100-10mg Oral Liqd 5 Ml PO Q4H PRN Cough Sodium Chloride 10 ml 05/04/21 22:00 05/05/21 11:01 Sodium Chloride 0.9% 10 Ml Flush Syringe IV 10 ml BID BRENDA Administration Sodium Chloride 10 ml 05/04/21 10:49 05/05/21 00:49 Sodium Chloride 0.9% 10 Ml Flush Syringe IV 10 ml PRN PRN Administration LINE FLUSH
[2021-05-05 11:07] LABS: INR 1.02 (0.87-1.13)
[2021-05-05 11:08] LABS: Partial Thromboplastin Time 38.3 Sec. (24.2-36.6)
--- NOTE | 2021-05-05 12:28 | Progress Note ---
Assessment and Plan Chest pain in setting of NSTEMI and significant history of CAD, AMI with CABG x3 * Patient experiencing typical chest pain which resolved after nitro administration. Initiate Imdur 30 mg daily * Troponins are elevated and trending upward. Continue to trend CE's * Neuro cannot opine on AC until workup for aneurysm is complete. Will postpone LHC until cleared by neuro. * Patient has ?record of some type of brain aneurysm/lesion and has been told in the past that he should not have anticoagulation. Records have been requested from [facility] in [facility]. Discussed with Dr. Scanlon and will consult with neurology. Acute on chronic heart failure in setting of cardiomyopathy * Echocardiogram reviewed (05/05/2021): LVEF is 40 to 45%. Mild LVH. Akinesis in the apex wall. Hypokinesis in the anterior wall. Hypokinesis in the inferior wall. Mild diastolic dysfunction is present (impaired relaxation pattern). Left ventricular thrombus is present, small thrombus, nonmobile noted in certain views. RV SF is moderately reduced. Mild MR. * Bilateral lower extremity edema 1-2+ is noted. * Optimize volume control. Continue Lasix 40 mg IV twice daily. Repeat BMP in a.m. * Goal-directed therapy with cardioprotective regimen: ASA 81, statin, beta- mahendra, CALOS inhibitor. ?Hx of Brain Aneuysm * Neuro is following. Brain MRI and CT/CTA head is ordered. Records requested from [facility] in [facility]. Delay cardiac cath until cleared by neurology. Hypertension * Optimize antihypertensive regimen: Increase metoprolol to 50 mg 3 times daily, continue lisinopril 20 mg daily DVT prophylaxis * Heparin gtt. Cath will be postponed, continue on heparin gtt, pending neuro recs. Will follow This patient was seen in conjunction with Dr Asencio who agrees with this assessment and plan of care - Patient Problems (1) Non-ST elevated myocardial infarction Current Visit: Yes Status: Acute (2) Acute exacerbation of congestive heart failure Current Visit: Yes Status: Acute Qualifiers: Heart failure type: unspecified Qualified Code(s): I50.9 - Heart failure, unspecified (3) Coronary artery disease Current Visit: Yes Status: Acute (4) History of acute myocardial infarction Current Visit: Yes Status: Chronic (5) Seizure disorder Current Visit: Yes Status: Chronic (6) Hypertension Current Visit: Yes Status: Chronic (7) Diabetes mellitus Current Visit: Yes Status: Chronic (8) Anxiety Current Visit: Yes Status: Chronic Subjective Date of service: 05/05/21 Principal diagnosis: Chest Pain, NSTEMI Interval history: Patient is currently resting comfortably in bed. No shortness of breath or chest pain overnight. Patient has had no episodes of chest pain since initial episode which brought him to the hospital was resolved with NTG administration. Telemetry reviewed: Sinus rhythm 95. No events Objective Last Vital Signs Temp 98.2 F 05/05/21 10:43 Pulse 92 H 05/05/21 10:43 Resp 18 05/05/21 10:43 BP 134/90 05/05/21 10:43 Pulse Ox 92 05/05/21 10:43 - Physical Examination HEENT: Positive: PERRL, Normocephaly, Mucus Membranes Moist Neck: Positive: neck supple, trachea midline Cardiac: Positive: Reg Rate and Rhythm Lungs: Positive: Normal Exam, Normal Breath Sounds Neuro: Positive: Grossly Intact Abdomen: Positive: Unremarkable, Soft /Rectal: No Masses Skin: Negative: Rash, Wound Musculoskeletal: No Pain Extremities: Present: upper extr. pulses, lower extr. pulses, +1 Edema - Labs and Meds Coagulation 05/04/21 05/04/21 05/05/21 Range/Units 15:54 23:04 10:39 PT 13.2 14.0 13.9 (12.2-14.9) Sec. INR 0.94 1.02 1.02 (0.87-1.13) APTT 36.0 48.6 H 38.3 H (24.2-36.6) Sec. CBC 05/04/21 05/04/21 05/05/21 Range/Units 15:54 23:04 02:39 WBC 8.8 (4.5-11.0) K/mm3 RBC 4.45 (3.65-5.03) M/mm3 Hgb 15.8 H 14.8 14.0 (11.8-15.2) gm/dl Hct 47.6 H 43.8 40.6 (35.5-45.6) % Plt Count 189 193 189 (140-440) K/mm3 05/05/21 Range/Units 10:39 WBC (4.5-11.0) K/mm3 RBC (3.65-5.03) M/mm3 Hgb (11.8-15.2) gm/dl Hct (35.5-45.6) % Plt Count 181 (140-440) K/mm3 Comprehensive Metabolic Panel 05/05/21 Range/Units 02:39 Chloride 99.5 (98-107) mmol/L Carbon Dioxide 26 D (22-30) mmol/L BUN 17 (9-20) mg/dL Creatinine 1.2 (0.8-1.3) mg/dL Glucose 311 H (75-100) mg/dL Calcium 9.4 (8.4-10.2) mg/dL - Imaging and Cardiology EKG: report reviewed Echo: report reviewed - EKG Sinus rhythms and dysrhythmias: sinus rhythm AV and intraventricular conduction: right bundle branch block
--- NOTE | 2021-05-05 13:40 | Consultation ---
History of Present Illness Consult date: 05/05/21 Reason for Consult: Acute CP ,Hx of bleed, History of present illness: Acute chest pain History of present illness: 56-year-old -[place] male with a past medical history of CAD with history of CABG x3 in 2007, heart failure unspecified, DM2, hypertension, hyperlipidemia, seizure disorder, who presents with acute chest pain. Patient states in the last 12 hours, started to have substernal chest pain, more so on the left side, nonradiating, 4/10 pain, dull and sharp, intermittent, worse with coughing. This morning patient started to have diaphoresis, decided to come to the emergency department, had emesis x1, no hematemesis, no weakness in upper or lower extremities, no visual changes, no seizure activity. Came to [facility] for evaluation, Blood pressure 170/98, heart rate 80, respiratory rate up to 35. Labs significant for elevated troponin of 0.115. proBNP 2789. Chest x-ray did show pulmonary congestion, EKG showed right bundle branch block with some T wave inversion. Patient was started on heparin drip, cardiology was consulted for NSTEMI, patient given nitro and furosemide. Patient states last stress test was about 2 years ago at the [place] in [facility]. pt. is with hx of aneurysm bleed X3 years ago with resultant seizure -- according to him he had aneurysm clipping X3 years ago Past History Past Medical History: other (Heart failure unspecified, CAD, DM2, HTN, HLD, seizure disorder) Past Surgical History: Other (CABG x3 in 2007) Social history: other (Never smoker, patient drinks 1 beer a night, no illicit drug use) Family history: other (CAD, diabetes mellitus type 2, hypertension) Medications and Allergies Allergies Allergy/AdvReac Type Severity Reaction Status Date / Time No Known Allergies Allergy Unverified 05/04/21 04:11 Home Medications Medication Instructions Recorded Confirmed Last Taken Type Aspirin [Aspirin BABY CHEW TAB] 81 mg PO QDAY 05/04/21 05/04/21 05/03/21 History Atorvastatin Calcium [Lipitor] 80 mg PO DAILY 05/04/21 05/04/21 05/03/21 History Metformin HCl [metFORMIN] 1,000 mg PO BID 05/04/21 05/04/21 05/03/21 History Metoprolol [Lopressor] 25 mg PO BID 05/04/21 05/04/21 05/03/21 History glipiZIDE [Glucotrol] 10 mg PO BID 05/04/21 05/04/21 05/03/21 History hydroCHLOROthiazide [HCTZ] 25 mg PO QDAY 05/04/21 05/04/21 05/03/21 History levETIRAcetam [Keppra TAB] 500 mg PO BID 05/04/21 05/04/21 05/03/21 History Active Meds: Active Medications Acetaminophen (Acetaminophen 325 Mg Tab) 650 mg PO Q4H PRN PRN Reason: Pain MILD(1-3)/Fever >100.5/ZIEGLER Atorvastatin Calcium (Atorvastatin 40 Mg Tab) 80 mg PO QHS BRENDA Furosemide (Furosemide 40 Mg/4 Ml Inj) 40 mg IV BID [facility] Stop: 05/07/21 21:59 Heparin Sodium (Porcine) (Heparin 10,000 Units/10 Ml Vial) 3,300 unit 40 unit/kg (3300 unit) IV Q6H PRN PRN Reason: Anti-Xa Assay<0.1 units/ml Last Admin: 05/04/21 09:48 Dose: 3,300 unit Documented by: Hydralazine HCl (Hydralazine 20 Mg/1 Ml Inj) 10 mg IV Q3HR PRN PRN Reason: Blood Pressure Hydrochlorothiazide (Hydrochlorothiazide 25 Mg Tab) 25 mg PO QDAY [facility] Labetalol HCl (Labetalol 20 Mg/4 Ml Inj) 10 mg IV ONCE ONE Stop: 05/04/21 11:00 Levetiracetam (Levetiracetam 500 Mg Tab) 500 mg PO BID [facility] Lisinopril (Lisinopril 20 Mg Tab) 20 mg PO DAILY [facility] Metoprolol Tartrate (Metoprolol Tartrate 25 Mg Tab) 25 mg PO BID [facility] Morphine Sulfate (Morphine 4 Mg/1 Ml Inj) 4 mg IV Q4H PRN PRN Reason: Pain , Severe (7-10) Naloxone HCl (Naloxone 0.4 Mg/1 Ml Inj) 0.1 mg IV Q2MIN PRN PRN Reason: Res Rate </= 8 or 02 SAT < 92% Ondansetron HCl (Ondansetron 4 Mg/2 Ml Inj) 4 mg IV Q8H PRN PRN Reason: Nausea And Vomiting Oxycodone/Acetaminophen (Oxycodone /Acetaminophen 5-325mg Tab) 1 tab PO Q6H PRN PRN Reason: Pain, Moderate (4-6) Sodium Chloride (Sodium Chloride 0.9% 10 Ml Flush Syringe) 10 ml IV BID [facility] Sodium Chloride (Sodium Chloride 0.9% 10 Ml Flush Syringe) 10 ml IV PRN PRN PRN Reason: LINE FLUSH Review of Systems All systems: negative Cardiovascular: chest pain Gastrointestinal: nausea, vomiting Past History Past Medical History: other (Heart failure unspecified, CAD, DM2, HTN, HLD, seizure disorder) Past Surgical History: Other (CABG x3 in 2007) Social history: other (Never smoker, patient drinks 1 beer a night, no illicit drug use) Family history: other (CAD, diabetes mellitus type 2, hypertension) Medications and Allergies Allergies Allergy/AdvReac Type Severity Reaction Status Date / Time No Known Allergies Allergy Unverified 05/04/21 04:11 Home Medications Medication Instructions Recorded Confirmed Last Taken Type Aspirin [Aspirin BABY CHEW TAB] 81 mg PO QDAY 05/04/21 05/04/21 05/03/21 History Atorvastatin Calcium [Lipitor] 80 mg PO DAILY 05/04/21 05/04/21 05/03/21 History Metformin HCl [metFORMIN] 1,000 mg PO BID 05/04/21 05/04/21 05/03/21 History Metoprolol [Lopressor] 25 mg PO BID 05/04/21 05/04/21 05/03/21 History glipiZIDE [Glucotrol] 10 mg PO BID 05/04/21 05/04/21 05/03/21 History hydroCHLOROthiazide [HCTZ] 25 mg PO QDAY 05/04/21 05/04/21 05/03/21 History levETIRAcetam [Keppra TAB] 500 mg PO BID 05/04/21 05/04/21 05/03/21 History Active Meds: Active Medications Acetaminophen (Acetaminophen 325 Mg Tab) 650 mg PO Q4H PRN PRN Reason: Pain MILD(1-3)/Fever >100.5/ZIEGLER Aspirin (Aspirin 325 Mg Tab) 325 mg PO QDAY [facility] Last Admin: 05/05/21 10:34 Dose: 325 mg Documented by: Atorvastatin Calcium (Atorvastatin 40 Mg Tab) 80 mg PO QHS [facility] Last Admin: 05/04/21 22:08 Dose: 80 mg Documented by: Dextrose (Dextrose 50% In Water (25gm) 50 Ml Syringe) 50 ml IV Q30MIN PRN; Protocol PRN Reason: Hypoglycemia Furosemide (Furosemide 40 Mg/4 Ml Inj) 40 mg IV BID [facility] Stop: 05/07/21 21:59 Last Admin: 05/05/21 10:34 Dose: 40 mg Documented by: Heparin Sodium (Porcine) (Heparin 10,000 Units/10 Ml Vial) 3,500 unit 40 unit/kg (3500 unit) IV Q6H PRN PRN Reason: Anti-Xa Assay < 0.1 units/ml Hydralazine HCl (Hydralazine 20 Mg/1 Ml Inj) 10 mg IV Q3H PRN PRN Reason: Blood Pressure Last Admin: 05/04/21 21:23 Dose: 10 mg Documented by: Levetiracetam 500 mg/ Dextrose 105 mls @ 400 mls/hr IV Q12HR [facility] Last Admin: 05/05/21 11:01 Dose: 400 mls/hr Documented by: Heparin Sodium/Sodium Chloride (Heparin/ 0.45% Nacl-25,000 Unit/500 Ml) 25,000 unit in 500 mls @ 20 mls/hr IV TITRATE [facility]; Protocol Last Admin: 05/05/21 10:01 Dose: 1,000 units/hr, 20 mls/hr Documented by: Insulin Human Regular (Insulin Regular, Human 100 Units/1 Ml) 0 units SUB-Q ACHS [facility]; Protocol Last Admin: 05/05/21 10:57 Dose: 4 units Documented by: Isosorbide Mononitrate (Isosorbide Mononitrate Er 30 Mg Tab) 30 mg PO QDAY [facility] Last Admin: 05/05/21 10:34 Dose: 30 mg Documented by: Lisinopril (Lisinopril 20 Mg Tab) 20 mg PO DAILY [facility] Last Admin: 05/05/21 10:34 Dose: 20 mg Documented by: Metoprolol Tartrate (Metoprolol Tartrate 50 Mg Tab) 50 mg PO TID [facility] Morphine Sulfate (Morphine 4 Mg/1 Ml Inj) 4 mg IV Q4H PRN PRN Reason: Pain , Severe (7-10) Naloxone HCl (Naloxone 0.4 Mg/1 Ml Inj) 0.1 mg IV Q2MIN PRN PRN Reason: Res Rate </= 8 or 02 SAT < 92% Nitroglycerin (Nitroglycerin 0.4 Mg Tab Subl) 0.4 mg SL .Q5MIN PRN PRN Reason: Chest Pain Ondansetron HCl (Ondansetron 4 Mg/2 Ml Inj) 4 mg IV Q8H PRN PRN Reason: Nausea And Vomiting Last Admin: 05/04/21 20:41 Dose: 4 mg Documented by: Oxycodone/Acetaminophen (Oxycodone /Acetaminophen 5-325mg Tab) 1 tab PO Q6H PRN PRN Reason: Pain, Moderate (4-6) Pseudoephedrine/Acetam/Chlorphenir (Guaifenesin/Codeine 100-10mg Oral Liqd 5 Ml) 10 ml PO Q4H PRN PRN Reason: Cough Sodium Chloride (Sodium Chloride 0.9% 10 Ml Flush Syringe) 10 ml IV BID BRENDA Last Admin: 05/05/21 11:01 Dose: 10 ml Documented by: Sodium Chloride (Sodium Chloride 0.9% 10 Ml Flush Syringe) 10 ml IV PRN PRN PRN Reason: LINE FLUSH Last Admin: 05/05/21 00:49 Dose: 10 ml Documented by: Physical Examination - Vital Signs Vital Signs: Vital Signs Temp Resp BP 99.0 F 16 199/138 05/04/21 03:57 05/04/21 03:57 05/04/21 03:57 - Constitutional General appearance: comfortable - EENT EENT: Present: PERRL, mucous membranes moist - Respiratory Respiratory: Present: chest non-tender, lungs clear, rhonchi - Cardiovascular Cardiovascular: Present: regular rate, normal S1, normal S2 Extremities: Present: no peripheral edema bilatateraly - Gastrointestinal Gastrointestinal: Present: normoactive bowel sounds - Integumentary Integumentary: Present: normal - Neurologic Cranial nerve examination: PERRL, EOMI, other (left visual deficit ,) Speech examination: intact Sensorimotor examination: intact, other (left upper 4-/5 ,) Results - Laboratory Findings CBC and BMP: 05/05/21 10:39 05/05/21 02:39 Abnormal Lab Findings: Abnormal Labs 05/04/21 05/04/21 05/04/21 04:29 04:29 07:17 WBC 11.8 H Hgb Hct MCHC Seg Neutrophils % 76.0 H Seg Neutrophils # 8.9 H APTT Heparin Anti-Xa Level Carbon Dioxide 19 L Glucose 229 H POC Glucose Hemoglobin A1c Troponin T 0.115 H* D NT-Pro-B Natriuret Pep 05/04/21 05/04/21 05/04/21 07:17 10:41 15:13 WBC Hgb Hct MCHC Seg Neutrophils % Seg Neutrophils # APTT Heparin Anti-Xa Level Carbon Dioxide Glucose POC Glucose Hemoglobin A1c Troponin T 0.248 H* D 0.422 H* D NT-Pro-B Natriuret Pep 2789 H 05/04/21 05/04/21 05/04/21 15:54 16:22 22:19 WBC Hgb 15.8 H Hct 47.6 H MCHC Seg Neutrophils % Seg Neutrophils # APTT Heparin Anti-Xa Level Carbon Dioxide Glucose POC Glucose 161 H 317 H Hemoglobin A1c Troponin T NT-Pro-B Natriuret Pep 05/04/21 05/05/21 05/05/21 23:04 02:39 02:39 WBC Hgb Hct MCHC Seg Neutrophils % Seg Neutrophils # APTT 48.6 H Heparin Anti-Xa Level 0.18 L Carbon Dioxide Glucose POC Glucose Hemoglobin A1c 7.3 H Troponin T NT-Pro-B Natriuret Pep 05/05/21 05/05/21 05/05/21 02:39 02:39 07:53 WBC Hgb Hct MCHC 35 H Seg Neutrophils % Seg Neutrophils # APTT Heparin Anti-Xa Level Carbon Dioxide Glucose 311 H POC Glucose 256 H Hemoglobin A1c Troponin T 0.441 H* NT-Pro-B Natriuret Pep 05/05/21 10:39 WBC Hgb Hct MCHC Seg Neutrophils % Seg Neutrophils # APTT 38.3 H Heparin Anti-Xa Level Carbon Dioxide Glucose POC Glucose Hemoglobin A1c Troponin T NT-Pro-B Natriuret Pep Assessment and Plan Assessment and Plan Assessment and plan: 56-year-old -[place] male with past medical history as above who presents with acute chest pain #NSTEMI type I versus type II History of CABG x3 in 2007 Mild elevated troponin Patient started on heparin drip EKG reviewed, no STEMI, right bundle branch block noted Cardiology consulted will await recommendations pertaining to diagnostic tests # Hx of Cerebral aneurysmX3 years back -with resultant bleed as per pt. -had aneurysm clipping -he is with residual left side weakness and left visual neglect # Resultant seizure -following aneurysm bleed -seizure free X3 years -On keppra 500 mg bid #Heart failure unspecified Elevated BNP Cardiology consulted, patient will most likely need a echocardiogram Furosemide 40 mg twice daily daily #Diabetes mellitus type 2 Pending A1c Insulin sliding scale #Hypertension Labetalol IV and hydralazine IV as needed with parameters Continue lisinopril, metoprolol, hydrochlorothiazide -Initial JENN 169/104 --need better control BP #DVT prophylaxis: Heparin drip CODE STATUS: Full PLAN 1- Ct/CTA brain and neck 2- MRI brain 3- EEG 4- maintain Keppra 5- better control of BP <150/80 6- LDL,A1C will follow
--- NOTE | 2021-05-05 17:02 | Magnetic Resonance Report ---
MRI BRAIN WITHOUT CONTRAST INDICATION / CLINICAL INFORMATION: hx of aneurysmal bleed. TECHNIQUE: Multiplanar, multisequence MR images of the brain were obtained. COMPARISON: None available. FINDINGS: BRAIN / INTRACRANIAL CONTENTS: There is chronic and cephalization in the right [employer] territory and in t he bilateral MCA [employer] watershed zones. Chronic hemosiderin deposition is seen in the region of the rig ht [employer] infarct. There is no acute infarct. There is no appreciable acute hemorrhage or adverse mass e ffect. There are moderate chronic small vessel ischemic changes in the cerebral white matter. CRANIOCERVICAL JUNCTION: No significant abnormality. VASCULAR FLOW-VOIDS: No significant abnormality. ORBITS: No significant abnormality of visualized orbits. SINUSES / MASTOIDS: There is moderate mucosal thickening in the left maxillary sinus. ADDITIONAL FINDINGS: None. IMPRESSION: 1. No definite acute findings. 2. Multifocal chronic infarcts as detailed above. Signer Name: Baltazar Paiz MD Signed: 05/05/2021 4:57 PM Workstation Name: [id number]
[2021-05-05] MEDS ORDERED: HEPARIN 10,000 UNITS/10 ML VIAL IV STA (18:23)
--- NOTE | 2021-05-05 18:47 | Cat Scan Report ---
CT head/brain wo con INDICATION / CLINICAL INFORMATION: 56 years Male; hx of brain bleed. TECHNIQUE: Routine CT head without contrast. All CT scans at this location are performed using CT dos e reduction for ALARA by means of automated exposure control. COMPARISON: The study is compared to the earlier MRI brain of 05/05/2021. FINDINGS: BRAIN / INTRACRANIAL CONTENTS: The findings a correlate with the earlier MRI demonstrating extensive encephalomalacia within the right [employer]ICIAN distribution compatible with old infarct. Additionally, there i s associated calcification and chronic blood products along the medial occipital region. Additionally , there is an old infarct involving the left parietal lobe with encephalomalacia. Otherwise, there is no clear CT evidence of acute intracranial hemorrhage. There is mild ex vacuo dilatation of the posterior right lateral ventricle. There otherwise appears t o be mild to moderate to degree of microvascular angiopathy. ORBITS: No significant abnormality of visualized orbits. SINUSES / MASTOIDS: There is near complete opacification of the left maxillary sinus. CRANIOCERVICAL JUNCTION: No significant abnormality. ADDITIONAL FINDINGS: There is a 1.5 similar lesion within the left frontal calvarium with dense scler otic margins at. There is relative lucency centrally. This finding is nonspecific there are also kirsten elates with the earlier MRI. No definitive extra osseous component is identified at. IMPRESSION: 1. There are old infarcts within the right [employer] H[employer]PITALIST PHYSICIAN distribution including the left parietal lobe as starai led above. The findings a correlate with the earlier MRI. Signer Name: Ervni Gotti MD Signed: 05/05/2021 6:43 PM Workstation Name: [id number]
--- NOTE | 2021-05-05 18:52 | Cat Scan Report ---
CT angio neck INDICATION / CLINICAL INFORMATION: 56 years Male; cva, hx of brain bleed,100ML OF 350 OMNIPAQUE GIVEN. TECHNIQUE: Thin cut axial images obtained through the head during IV bolus contrast administration. S agittal, coronal, and 3 plane MIP reconstructions performed by the technologist. NASCET type criteria used evaluate stenoses. All CT scans at this location are performed using CT dose reduction for ALAR A by means of automated exposure control. COMPARISON: None available. FINDINGS: CAROTID ARTERIES: There is mild atherosclerotic calcification involving proximal internal carotid art eries bilaterally without significant stenosis by NASCET criteria. There is also mild plaque involvin g mid to distal common carotid arteries without significant stenosis. Additionally, there is a focus of calcification posteriorly involving the distal cervical left ICA without significant stenosis. VERTEBRAL ARTERIES: There is mild calcification near the origin of the left vertebral artery. However , there is no significant focal stenosis of the left vertebral artery at. There is developmental hypo plasia of the right vertebral artery. Additionally, there are foci of calcification involving the pro ximal to mid segments with mild stenosis at. There is also mild to moderate narrowing at the origin. ARCH: There is mild calcification involving aortic arch. However, there is no significant stenosis of the origins of the arch vessels. ADDITIONAL FINDINGS: Remainder of the surrounding soft tissues are grossly normal. IMPRESSION: There is milder calcification involving cervical carotid arteries as described without significant st enosis by NASCET criteria. 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 Signer Name: Ervin Gotti MD Signed: 05/05/2021 6:48 PM Workstation Name: [id number]
--- NOTE | 2021-05-05 18:58 | Cat Scan Report ---
CT angio head INDICATION / CLINICAL INFORMATION: 56 years Male; CVA, HX OF BRAIN BLEED, 100ML OF 350 OMNIPAQUE GIVEN. TECHNIQUE: Thin cut axial images obtained through the head during IV bolus contrast administration. S agittal, coronal, and 3 plane MIP reconstructions performed by the technologist. NASCET type criteria used evaluate stenoses. Automated exposure control utilized for radiation reduction purposes. COMPARISON: None available. FINDINGS: INTERNAL CAROTID ARTERIES: There is atherosclerotic calcification involving distal internal carotid a rteries, particularly the right clinoid and proximal communicating segments with moderate to stenosis at. Milder narrowing is seen involving the left clinoid segment. VERTEBROBASILAR SYSTEM: There is notable calcification involving the proximal intracranial segments o f the vertebral arteries with marked stenosis on the right and moderate to marked narrowing on the le ft. There is mild narrowing of the mid basilar artery. CEREBRAL ARTERIES: There is occlusion of the proximal right [employer]. There is extensive encephalomalacia within the right [employer] distribution compatible with old infarct. There is also an old infarct involving left parietal lobe with possibility of opacified vessels withi n this region. There is mild diffuse irregularity of the cerebral arteries which is nonspecific thoug h may represent diffuse atherosclerotic disease; correlation be needed in a patient this age at. Ther e is no significant focal stenosis involving more proximal anterior cerebral branches at. ANEURYSM: None identified. ADDITIONAL FINDINGS: The dural venous sinuses opacify with contrast. IMPRESSION: There is occlusion of the right [employer] with extensive old infarct as described. There is atherosclerotic calcification involving internal carotid arteries, most notably involving th e right clinoid and communicates segments with moderate stenosis. There is notable calcification along the proximal intracranial segments of the vertebral arteries wit h marked narrowing on the right and moderate to marked narrowing on the left. Signer Name: Ervin Gotti MD Signed: 05/05/2021 6:54 PM Workstation Name: [id number]
[2021-05-05] MEDS: guaiFENesin/CODEINE 100-10MG ORAL LIQD 5 ML PO PRN (21:22)
[2021-05-06 02:48] LABS: Basophils # (Auto) 0.1 K/mm3 (0.0-0.1); Basophils % (Auto) 0.6 % (0.0-1.8); Eosinophils # (Auto) 0.2 K/mm3 (0.0-0.4); Eosinophils % (Auto) 2.2 % (0.0-4.3); Hematocrit 42.7 % (35.5-45.6); Hemoglobin 14.6 gm/dl (11.8-15.2); Lymphocytes # (Auto) 2.9 K/mm3 (1.2-5.4); Lymphocytes % (Auto) 32.1 % (13.4-35.0); Mean Corpuscular HGB Conc 34 % (32-34); Mean Corpuscular Volume 91 fl (84-94); Monocytes # (Auto) 1.1 K/mm3 (0.0-0.8); Monocytes % (Auto) 12.3 % (0.0-7.3); Platelet Count 189 K/mm3 (140-440); Red Blood Count 4.67 M/mm3 (3.65-5.03); Red Cell Distribution Width 13.5 % (13.2-15.2)
[2021-05-06 02:52] LABS: INR 1.01 (0.87-1.13)
[2021-05-06 03:09] LABS: BUN/Creatinine Ratio 14; Blood Urea Nitrogen 19 mg/dL (9-20); Hemolysis Index 3
[2021-05-06] MEDS ORDERED: ASPIRIN 81 MG TAB CHEW PO SCH (06:00)
[2021-05-06] MEDS: HEPARIN/ 0.45% NACL DRIP 25,000 UNIT/500 ML BAG IV SCH (06:59)
[2021-05-06] MEDS: INSULIN REGULAR, HUMAN 100 UNITS/1 ML SUB-Q SCH ×4 (07:47→22:28)
[2021-05-06] MEDS ORDERED: HEPARIN 10,000 UNITS/10 ML VIAL ONE (08:23)
[2021-05-06] MEDS ORDERED: HEPARIN/NS 5000 UNIT/500ML 1,000 ML IR ONE (08:23)
[2021-05-06] MEDS ORDERED: SODIUM CHLORIDE 0.9% 500 ML 500 ML ONE (08:24)
[2021-05-06] MEDS ORDERED: ASPIRIN 325 MG TAB ONE (08:41)
[2021-05-06] MEDS: fentaNYL 100 MCG/2 ML INJ ONE ×2 (08:58→09:18)
[2021-05-06] MEDS: MIDAZOLAM 2 MG/2 ML INJ ONE ×2 (08:59→09:18)
[2021-05-06] MEDS: LIDOCAINE (2%) 20 MG/1 ML VIAL 20 ML MDV INFILTRATI ONE ×2 (08:59→09:23)
[2021-05-06] MEDS ORDERED: SODIUM CHLORIDE 0.9% 500 ML 500 ML IV SCH (09:00)
[2021-05-06] MEDS ORDERED: METOPROLOL TARTRATE 50 MG TAB PO SCH (10:00)
[2021-05-06] MEDS: levETIRAcetam 500 MG in DEXTROSE 5% IN WATER 100 ML IV SCH ×2 (10:32→22:21)
[2021-05-06] MEDS: FUROSEMIDE 40 MG/4 ML INJ IV SCH ×2 (10:32→22:17)
[2021-05-06] MEDS: METOPROLOL TARTRATE 100 MG TAB PO SCH ×2 (10:33→22:17)
[2021-05-06] MEDS: LISINOPRIL 20 MG TAB PO SCH (10:34)
[2021-05-06] MEDS: METOPROLOL TARTRATE 50 MG TAB PO SCH (10:35)
[2021-05-06] MEDS: ASPIRIN 325 MG TAB PO SCH (10:44)
--- NOTE | 2021-05-06 11:51 | Progress Note ---
Assessment and Plan Chest pain in setting of NSTEMI and significant history of CAD, AMI with CABG x3 (2007) * Initial episode of chest pain resolved with administration of nitroglycerin and has not returned. Patient is currently chest pain-free and without cardiac symptoms. * [facility] (05/06/2021): Normal size left ventricle with akinetic anterior wall and apex. EF 55%. Triple-vessel disease with occluded proximal LAD, occluded circumflex artery and occluded RCA. The LAD is well protected by the left internal mammary graft. Widely patent saphenous vein graft to the ramus branch is visualized. Ramus branch itself is occluded at the ostium. Circumflex artery is occluded and feeling faint. This is not protected. RCA is occluded, but has good collaterals. Recommend medical therapy as assymptomatic, may consider intervention of circumflex if pt becomes symptomatic.. Acute on chronic heart failure in setting of cardiomyopathy * Echocardiogram reviewed (05/05/2021): LVEF is 40 to 45%. Mild LVH. Akinesis in the apex wall. Hypokinesis in the anterior wall. Hypokinesis in the inferior wall. Mild diastolic dysfunction is present (impaired relaxation pattern). Left ventricular thrombus is present, small thrombus, nonmobile noted in certain views. RV SF is moderately reduced. Mild MR. * Patient is nearing euvolemia and is asymptomatic. Bilateral lower extremity edema trace to 1+. * Optimize volume control. Convert Lasix to 40 mg p.o. daily * Goal-directed therapy with cardioprotective regimen: ASA 81, statin, beta- mahendra, CALOS inhibitor. ?Hx of Brain Aneuysm * Neuro is following. Brain MRI and CT/CTA head is ordered. Records requested from [facility] in [facility]. Hypertension * Optimize antihypertensive regimen: Increase metoprolol 100 mg p.o. twice daily, continue lisinopril 20 mg daily, Imdur 30 mg daily DVT prophylaxis * Heparin SQ Patient has asymptomatic triple vessel disease s/p cabgx3 with NSTEMI and patent MARIN, SVG. Echocardiogram also shows small ventricular thrombus, and pt has complicating factor of cerebral aneurysm. Recommend medical therapy of aspirin 81 mg daily, Coumadin titrated to therapeutic level x3 months to address NSTEMI and ventricular thrombus. Nothing further from cardiac standpoint. Will follow. Patient is regularly followed by [facility] and should follow-up with [place] cardiology within 1 to 2 weeks of discharge This patient was seen in conjunction with Dr Asencio who agrees with this assessment and plan of care - Patient Problems (1) Non-ST elevated myocardial infarction Status: Acute (2) Acute exacerbation of congestive heart failure Status: Acute Qualifiers: Heart failure type: unspecified Qualified Code(s): I50.9 - Heart failure, unspecified (3) Coronary artery disease Status: Acute (4) History of acute myocardial infarction Status: Chronic (5) Seizure disorder Status: Chronic (6) Hypertension Status: Chronic (7) Diabetes mellitus Status: Chronic (8) Anxiety Status: Chronic Subjective Date of service: 05/06/21 Principal diagnosis: Chest Pain, NSTEMI Interval history: Patient resting comfortably in bed. No shortness of breath or chest pain overnight Telemetry reviewed: Sinus rhythm 80. No events Objective Last Vital Signs Temp 98.8 F 05/06/21 00:04 Pulse 67 05/06/21 10:34 Resp 18 05/06/21 11:21 BP 145/92 05/06/21 10:34 Pulse Ox 98 05/06/21 11:21 - Physical Examination General: Appears Well HEENT: Positive: PERRL, Normocephaly, Mucus Membranes Moist Neck: Positive: neck supple, trachea midline Cardiac: Positive: Reg Rate and Rhythm, S1/S2 Lungs: Positive: Normal Exam, Normal Breath Sounds Neuro: Positive: Grossly Intact Abdomen: Positive: Unremarkable, Soft /Rectal: No Masses Skin: Negative: Rash, Wound Musculoskeletal: No Pain Extremities: Present: upper extr. pulses, lower extr. pulses. Absent: edema - Labs and Meds Coagulation 05/06/21 Range/Units 02:10 PT 13.8 (12.2-14.9) Sec. INR 1.01 (0.87-1.13) CBC 05/06/21 Range/Units 02:10 WBC 9.1 (4.5-11.0) K/mm3 RBC 4.67 (3.65-5.03) M/mm3 Hgb 14.6 (11.8-15.2) gm/dl Hct 42.7 (35.5-45.6) % Plt Count 189 (140-440) K/mm3 Lymph # (Auto) 2.9 (1.2-5.4) K/mm3 Mccone # (Auto) 1.1 H (0.0-0.8) K/mm3 Eos # (Auto) 0.2 (0.0-0.4) K/mm3 Baso # (Auto) 0.1 (0.0-0.1) K/mm3 Comprehensive Metabolic Panel 05/06/21 Range/Units 02:10 Sodium 138 (137-145) mmol/L Potassium 4.2 (3.6-5.0) mmol/L Chloride 97.5 L (98-107) mmol/L Carbon Dioxide 28 (22-30) mmol/L BUN 19 (9-20) mg/dL Creatinine 1.4 H (0.8-1.3) mg/dL Glucose 256 H (75-100) mg/dL Calcium 9.0 (8.4-10.2) mg/dL - Imaging and Cardiology EKG: report reviewed Echo: report reviewed Cardiac cath: report reviewed (Cardiac cath (05/06/2021) shows patent coronary artery bypass grafts, no occlusive coronary artery disease) - EKG Sinus rhythms and dysrhythmias: sinus rhythm AV and intraventricular conduction: right bundle branch block
--- NOTE | 2021-05-06 12:05 | Progress Note ---
Assessment and Plan Assessment and plan: 56-year-old -Cypriot male with past medical history as above who presents with acute chest pain NSTEMI type I versus type II History of CABG x3 in 2008 Troponins elevated but now stabilized Patient started on heparin drip EKG reviewed, no STEMI, right bundle branch block noted Records have been requested from the [facility] pertaining to the patient's CABG Left heart catheterization on 05/06/2021, no stenosis of grafts, no stent placed Heart failure unspecified Elevated BNP Pending echocardiogram report Furosemide 40 mg twice daily daily Diabetes mellitus type 2 Insulin sliding scale Hypertension Labetalol IV and hydralazine IV as needed with parameters Continue lisinopril, metoprolol, Isosorbide mononitrate History of seizure disorder Levetiracetam 500 mg twice daily IV Apical thrombus Seen on echocardiogram Currently on heparin drip History of aneurysm/brain bleed Patient states that he had a aneurysm/brain bleed and was on warfarin at the time, states this was about 2019 Neurology evaluated patient, neurology stated it would be fine to proceed with left heart catheterization and to continue heparin drip DVT prophylaxis: Heparin drip CODE STATUS: Full Disposition: Continue to monitor patient for NSTEMI. As far as anticoagulation, will discuss with cardiology if patient should be on aspirin only for his small apical cardiac thrombus. History Interval history: 05/05/2021: Patient without any chest pain, tolerating diet, no nausea or vomiting 05/06/2021: Patient seen and examined after catheterization, patient without any chest pain, states that he feels better. Hospitalist Physical - Physical exam Narrative exam: General appearance: no acute distress, well-nourished EENT: PERRL, EOM intact, hearing intact, clear oral mucosa Neck: Present: supple, normal ROM Respiratory: Lungs clear to auscultation no wheezes, no rales Cardiovascular: Regular rate/rhythm, Normal S1 & S2. No gallop, rub Extremities: no ischemia, bilateral +1 pitting edema in lower extremities, normal temperature, normal color, Full ROM Abdominal: soft, no tenderness, non-distended, normal bowel sounds Integumentary: Present: clear, warm, dry no wounds, no erythema noted Psychiatric: appropriate mood/affect, intact judgment & insight Neurologic: CNII-XII intact, moves all extremities, no sensory or motor abnormalities - Constitutional Vitals: Temp Pulse Resp BP Pulse Ox 98.8 F 67 18 145/92 98 05/06/21 00:04 05/06/21 10:34 05/06/21 11:21 05/06/21 10:34 05/06/21 11:21 General appearance: Present: no acute distress HEART Score - HEART Score Troponin: Troponin T 1.720 ng/mL (0.00-0.029) H* D 05/06/21 02:10 Results - Labs CBC & Chem 7: 05/06/21 02:10 05/06/21 02:10 Labs: Laboratory Last Values WBC 9.1 K/mm3 (4.5-11.0) 05/06/21 02:10 RBC 4.67 M/mm3 (3.65-5.03) 05/06/21 02:10 Hgb 14.6 gm/dl (11.8-15.2) 05/06/21 02:10 Hct 42.7 % (35.5-45.6) 05/06/21 02:10 MCV 91 fl (84-94) 05/06/21 02:10 MCH 31 pg (28-32) 05/06/21 02:10 MCHC 34 % (32-34) 05/06/21 02:10 RDW 13.5 % (13.2-15.2) 05/06/21 02:10 Plt Count 189 K/mm3 (140-440) 05/06/21 02:10 Lymph % (Auto) 32.1 % (13.4-35.0) 05/06/21 02:10 [place] % (Auto) 12.3 % (0.0-7.3) H 05/06/21 02:10 Eos % (Auto) 2.2 % (0.0-4.3) 05/06/21 02:10 Baso % (Auto) 0.6 % (0.0-1.8) 05/06/21 02:10 Lymph # (Auto) 2.9 K/mm3 (1.2-5.4) 05/06/21 02:10 [place] # (Auto) 1.1 K/mm3 (0.0-0.8) H 05/06/21 02:10 Eos # (Auto) 0.2 K/mm3 (0.0-0.4) 05/06/21 02:10 Baso # (Auto) 0.1 K/mm3 (0.0-0.1) 05/06/21 02:10 Seg Neutrophils % 52.8 % (40.0-70.0) 05/06/21 02:10 Seg Neutrophils # 4.8 K/mm3 (1.8-7.7) 05/06/21 02:10 PT 13.8 Sec. (12.2-14.9) 05/06/21 02:10 INR 1.01 (0.87-1.13) 05/06/21 02:10 APTT 38.3 Sec. (24.2-36.6) H 05/05/21 10:39 Heparin Anti-Xa Level 0.39 U.I./ml (0.3-0.7) 05/06/21 00:20 Sodium 138 mmol/L (137-145) 05/06/21 02:10 Potassium 4.2 mmol/L (3.6-5.0) 05/06/21 02:10 Chloride 97.5 mmol/L (98-107) L 05/06/21 02:10 Carbon Dioxide 28 mmol/L (22-30) 05/06/21 02:10 Anion Gap 17 mmol/L 05/06/21 02:10 BUN 19 mg/dL (9-20) 05/06/21 02:10 Creatinine 1.4 mg/dL (0.8-1.3) H 05/06/21 02:10 Estimated GFR > 60 ml/min 05/06/21 02:10 BUN/Creatinine Ratio 14 % 05/06/21 02:10 Glucose 256 mg/dL (75-100) H 05/06/21 02:10 POC Glucose 292 mg/dL (70-105) H 05/06/21 10:54 Hemoglobin A1c 7.3 % (4-6) H 05/05/21 02:39 Calcium 9.0 mg/dL (8.4-10.2) 05/06/21 02:10 Total Bilirubin 0.50 mg/dL (0.1-1.2) 05/04/21 04:29 AST 16 units/L (5-40) 05/04/21 04:29 ALT 19 units/L (7-56) 05/04/21 04:29 Alkaline Phosphatase 91 units/L (35-129) 05/04/21 04:29 Troponin T 1.720 ng/mL (0.00-0.029) H* D 05/06/21 02:10 NT-Pro-B Natriuret Pep 2789 pg/mL (0-900) H 05/04/21 07:17 Total Protein 6.9 g/dL (6.3-8.2) 05/04/21 04:29 Albumin 4.3 g/dL (3.9-5) 05/04/21 04:29 Albumin/Globulin Ratio 1.7 % 05/04/21 04:29 Triglycerides 68 mg/dL (2-149) 05/04/21 07:17 Cholesterol 110 mg/dL (50-199) 05/04/21 07:17 LDL Cholesterol Direct 54 mg/dL (50-130) 05/04/21 07:17 HDL Cholesterol 54 mg/dL (40-59) 05/04/21 07:17 Cholesterol/HDL Ratio 2.03 % 05/04/21 07:17 Baxter/IV: Voiding Method Toilet Active Medications - Current Medications Current Medications: Generic Name Dose Route Start Last Admin Trade Name Freq PRN Reason Stop Dose Admin Acetaminophen 650 mg 05/04/21 11:30 Acetaminophen 325 Mg Tab PO Q4H PRN Pain MILD(1-3)/Fever >100.5/ZIEGLER Aspirin 325 mg 05/05/21 10:00 05/06/21 10:44 Aspirin 325 Mg Tab PO Not Given QDAY [facility] Atorvastatin Calcium 80 mg 05/04/21 22:00 05/05/21 21:22 Atorvastatin 40 Mg Tab PO 80 mg QHS [facility] Administration Dextrose 50 ml 05/04/21 11:22 Dextrose 50% In Water (25gm) 50 Ml Syringe IV Q30MIN PRN Hypoglycemia Protocol Furosemide 40 mg 05/04/21 22:00 05/06/21 10:32 Furosemide 40 Mg/4 Ml Inj IV 05/07/21 21:59 40 mg BID BRENDA Administration Heparin Sodium (Porcine) 3,500 unit 05/05/21 09:30 Heparin 10,000 Units/10 Ml Vial 40 unit/kg (3500 unit) IV Q6H PRN Anti-Xa Assay < 0.1 units/ml Hydralazine HCl 10 mg 05/04/21 11:30 05/04/21 21:23 Hydralazine 20 Mg/1 Ml Inj IV 10 mg Q3H PRN Administration Blood Pressure Levetiracetam 500 mg/ Dextrose 105 mls @ 400 mls/hr 05/04/21 22:00 05/06/21 10:32 IV 400 mls/hr Q12HR BRENDA Administration Heparin Sodium/Sodium Chloride 25,000 unit in 500 mls @ 20 mls/hr 05/05/21 10:00 05/06/21 06:59 Heparin/ 0.45% Nacl-25,000 Unit/500 Ml IV 1,250 units/hr TITRATE BRENDA 25 mls/hr Administration Protocol 1,000 UNITS/HR Sodium Chloride 500 mls @ 50 mls/hr 05/06/21 09:00 05/06/21 10:35 Nacl 0.9% 500 Ml IV 05/06/21 18:59 50 mls/hr DIRECT BRENDA Administration Insulin Human Regular 0 units 05/04/21 11:30 05/06/21 11:06 Insulin Regular, Human 100 Units/1 Ml SUB-Q 4 units ACHS BRENDA Administration Protocol Isosorbide Mononitrate 30 mg 05/04/21 17:00 05/06/21 10:33 Isosorbide Mononitrate Er 30 Mg Tab PO 30 mg QDAY BRENDA Administration Lisinopril 20 mg 05/04/21 12:00 05/06/21 10:34 Lisinopril 20 Mg Tab PO 20 mg DAILY BRENDA Administration Metoprolol Tartrate 100 mg 05/06/21 10:00 05/06/21 10:33 Metoprolol Tartrate 100 Mg Tab PO 100 mg BID BRENDA Administration Morphine Sulfate 4 mg 05/04/21 12:00 Morphine 4 Mg/1 Ml Inj IV Q4H PRN Pain , Severe (7-10) Naloxone HCl 0.1 mg 05/04/21 12:00 Naloxone 0.4 Mg/1 Ml Inj IV Q2MIN PRN Res Rate </= 8 or 02 SAT < 92% Nitroglycerin 0.4 mg 05/04/21 12:00 Nitroglycerin 0.4 Mg Tab Subl SL .Q5MIN PRN Chest Pain Ondansetron HCl 4 mg 05/04/21 12:00 05/04/21 20:41 Ondansetron 4 Mg/2 Ml Inj IV 4 mg Q8H PRN Administration Nausea And Vomiting Oxycodone/Acetaminophen 1 tab 05/04/21 13:00 Oxycodone /Acetaminophen 5-325mg Tab PO Q6H PRN Pain, Moderate (4-6) Pseudoephedrine/Acetam/Chlorphenir 10 ml 05/05/21 00:42 05/05/21 21:22 Guaifenesin/Codeine 100-10mg Oral Liqd 5 Ml PO 10 ml Q4H PRN Administration Cough Sodium Chloride 10 ml 05/04/21 22:00 05/06/21 10:34 Sodium Chloride 0.9% 10 Ml Flush Syringe IV 10 ml BID BRENDA Administration Sodium Chloride 10 ml 05/04/21 10:49 05/05/21 00:49 Sodium Chloride 0.9% 10 Ml Flush Syringe IV 10 ml PRN PRN Administration LINE FLUSH
--- NOTE | 2021-05-06 12:06 | Progress Note ---
Assessment and Plan Assessment and Plan Assessment and plan: 56-year-old -[place] Islander male with past medical history as above who presents with acute chest pain #NSTEMI type I versus type II History of CABG x3 in 2007 Mild elevated troponin Patient started on heparin drip EKG reviewed, no STEMI, right bundle branch block noted Cardiology consulted will await recommendations pertaining to diagnostic tests # Hx of Cerebral aneurysmX3 years back -with resultant bleed as per pt. -had aneurysm clipping -he is with residual left side weakness and left visual neglect -MRI brain is with right [employer] infarct and possible bIlateral MCA -Echo is with 40-45% EF -LDL#54 A1C#7.3 # Resultant seizure -following aneurysm bleed -seizure free X3 years -On keppra 500 mg bid #Heart failure unspecified Elevated BNP Cardiology consulted, patient will most likely need a echocardiogram Furosemide 40 mg twice daily daily #Diabetes mellitus type 2 Pending A1c Insulin sliding scale #Hypertension Labetalol IV and hydralazine IV as needed with parameters Continue lisinopril, metoprolol, hydrochlorothiazide -Initial JENN 169/104 --need better control BP #DVT prophylaxis: Heparin drip CODE STATUS: Full PLAN 1- Ct/CTA brain and neck noted No Bleed , acute , No aneurysm. 2- MRI brain noted 3- EEG today 4- maintain Keppra 5- better control of BP <150/80 6- LDL,A1C will follow as neded Subjective Date of service: 05/06/21 Principal diagnosis: Chest Pain, NSTEMI Interval history: No chest pain today alert oriented had hearth catheter this am CT/CTA and MRI noted Objective - Vital Sign Vital Signs - 12hr 05/06/21 05/06/21 05/06/21 00:04 02:00 04:32 Temperature 98.8 F Pulse Rate 74 81 81 Respiratory 18 Rate Blood Pressure 154/103 152/103 Blood Pressure [Right] O2 Sat by Pulse 99 90 Oximetry 05/06/21 05/06/21 05/06/21 04:54 07:10 10:33 Temperature Pulse Rate 72 68 Respiratory Rate Blood Pressure 145/92 Blood Pressure 152/89 [Right] O2 Sat by Pulse Oximetry 05/06/21 05/06/21 10:34 11:21 Temperature Pulse Rate 67 Respiratory 18 Rate Blood Pressure 145/92 Blood Pressure [Right] O2 Sat by Pulse 98 Oximetry - General Apperance Constitutional: comfortable - EENT EENT: PERRL, mucous membranes moist - Respiratory Respiratory: chest non-tender, lungs clear, normal breath sounds, rhonchi - Cardiovascular Cardiovascular: regular rate, normal S1 Extremities: no peripheral edema bilat - Gastrointestinal Gastrointestinal: normoactive bowel sounds - Integumentary Integumentary: normal - Neurologic Cranial nerve examination: PERRL, EOMI, VFF, intact Speech examination: intact Detailed motor examination: other (slight left pronator drift , gait not done ) - Laboratory Findings CBC and BMP: 05/06/21 02:10 05/06/21 02:10 Abnormal Lab Findings: Abnormal Labs 05/04/21 05/04/21 05/04/21 04:29 04:29 07:17 WBC 11.8 H Hgb Hct MCHC Williams % (Auto) Williams # (Auto) Seg Neutrophils % 76.0 H Seg Neutrophils # 8.9 H APTT Heparin Anti-Xa Level Chloride Carbon Dioxide 19 L Creatinine Glucose 229 H POC Glucose Hemoglobin A1c Troponin T 0.115 H* D NT-Pro-B Natriuret Pep 05/04/21 05/04/21 05/04/21 07:17 10:41 15:13 WBC Hgb Hct MCHC Williams % (Auto) Williams # (Auto) Seg Neutrophils % Seg Neutrophils # APTT Heparin Anti-Xa Level Chloride Carbon Dioxide Creatinine Glucose POC Glucose Hemoglobin A1c Troponin T 0.248 H* D 0.422 H* D NT-Pro-B Natriuret Pep 2789 H 05/04/21 05/04/21 05/04/21 15:54 16:22 22:19 WBC Hgb 15.8 H Hct 47.6 H MCHC Williams % (Auto) Williams # (Auto) Seg Neutrophils % Seg Neutrophils # APTT Heparin Anti-Xa Level Chloride Carbon Dioxide Creatinine Glucose POC Glucose 161 H 317 H Hemoglobin A1c Troponin T NT-Pro-B Natriuret Pep 05/04/21 05/05/21 05/05/21 23:04 02:39 02:39 WBC Hgb Hct MCHC Williams % (Auto) Williams # (Auto) Seg Neutrophils % Seg Neutrophils # APTT 48.6 H Heparin Anti-Xa Level 0.18 L Chloride Carbon Dioxide Creatinine Glucose POC Glucose Hemoglobin A1c 7.3 H Troponin T NT-Pro-B Natriuret Pep 06/05/05/21 05/05/21 02:39 02:39 07:53 WBC Hgb Hct MCHC 35 H Williams % (Auto) Williams # (Auto) Seg Neutrophils % Seg Neutrophils # APTT Heparin Anti-Xa Level Chloride Carbon Dioxide Creatinine Glucose 311 H POC Glucose 256 H Hemoglobin A1c Troponin T 0.441 H* NT-Pro-B Natriuret Pep 05/05/21 05/05/21 05/05/21 10:39 10:51 15:55 WBC Hgb Hct MCHC Williams % (Auto) Williams # (Auto) Seg Neutrophils % Seg Neutrophils # APTT 38.3 H Heparin Anti-Xa Level Chloride Carbon Dioxide Creatinine Glucose POC Glucose 258 H 300 H Hemoglobin A1c Troponin T NT-Pro-B Natriuret Pep 05/05/21 05/05/21 05/06/21 16:05 21:11 02:10 WBC Hgb Hct MCHC Williams % (Auto) 12.3 H Williams # (Auto) 1.1 H Seg Neutrophils % Seg Neutrophils # APTT Heparin Anti-Xa Level < 0.10 L Chloride Carbon Dioxide Creatinine Glucose POC Glucose 312 H Hemoglobin A1c Troponin T NT-Pro-B Natriuret Pep 05/06/21 05/06/21 05/06/21 02:10 06:59 10:54 WBC Hgb Hct MCHC Williams % (Auto) Williams # (Auto) Seg Neutrophils % Seg Neutrophils # APTT Heparin Anti-Xa Level Chloride 97.5 L Carbon Dioxide Creatinine 1.4 H Glucose 256 H POC Glucose 268 H 292 H Hemoglobin A1c Troponin T 1.720 H* D NT-Pro-B Natriuret Pep
--- NOTE | 2021-05-06 12:47 | Cardiac Catherization Report ---
CARDIAC CATHETERIZATION REPORT INDICATIONS: The patient is a 56-year-old -Italian gentleman with history of known coronary artery disease, namely history of ST elevation anterior wall myocardial infarction with Q-waves and three-vessel coronary artery disease. This was on 09/07/2008, underwent coronary artery bypass graft x2 with MARIN to the LAD, which was 1.5 mm size and reverse saphenous vein graft to the ramus intermedius, which was 1.5 mm. The patient being followed at the [facility] and presented with acute onset of chest pain of 1-2 hours duration improved after receiving sublingual nitroglycerin in the emergency room and chest pain improved and no recurrence. Cardiac catheterization is being performed because of elevated cardiac enzymes. EKG showed sinus rhythm with right bundle branch block and anterolateral infarct. DESCRIPTION OF PROCEDURE: The patient was brought to the catheterization laboratory in a fasting condition. Patient is aware of the procedure, potential complications, and the alternatives of therapy available. The patient's right groin was prepared in standard fashion. The patient was evaluated for moderate sedation and was felt to be an appropriate candidate for moderate sedation and received IV Versed and fentanyl starting at 8:43 a.m. Subsequently, right groin was prepared and sterile drapes were applied. Local anesthesia was given in the right groin followed by accessing the right femoral artery using micropuncture needle under fluoroscopic guidance. Right femoral artery access was obtained and a 6-Gambian sheath was introduced. A 6-Gambian multipurpose catheter was used to obtain the angiograms of the left ventricle done in BENDER projection using hand injection followed by angiograms of the right coronary artery with 6-Gambian multipurpose catheter and also a saphenous vein graft angiogram was obtained using the multipurpose catheter. Subsequently, mammary catheter was used to obtain the angiograms of the left internal mammary graft. A JL 3.5 catheter was used to obtain the angiograms of the left coronary artery. At the end of the procedure, initially, it was felt that the patient may with autograft, which was not visualized. Hence aortogram was performed using 45 mL at 15 mL per hour. Angiograms of the right femoral artery were obtained and when it felt appropriate, a 6-Gambian Angio-Seal was applied with good hemostasis. No hematoma noted. No swelling noted. The patient tolerated the procedure well. No untoward complications were noted. Following the patient's moderate sedation started at 8:43 a.m. and ended at 9:23 a.m. The patient at the end of the procedure is alert and oriented x 3, breathing normally and communicating normally with no focal deficits. The patient was transferred to the room in stable condition. The patient's creatinine is mildly elevated up to 1.4 mg/dL. We will hydrate him and recheck his BMP in the morning. The patient will be monitored in telemetry. Following findings were noted. HEMODYNAMICS: 1. Opening aortic pressure 132/80. Left ventricular pressure 135/13. No gradient across the aortic valve. Estimated ejection fraction 30-35%. Left ventriculogram done in BENDER projection using hand injection showed akinetic anterior wall and apex. Overall, ejection fraction was felt to be around 30-35%. Mitral regurgitation could not be evaluated because of limited amount of dye injected. 2. Right coronary artery dominant vessel arises normally from right coronary cusp. It is occluded in the proximal one-third with excellent collaterals noted on the LCA injection and MARIN injection 3. Left coronary cusp. The RCA is diffusely and heavily calcified. 4. Left coronary artery arises normally from left coronary cusp. There is diffuse calcification of the left main and LAD and circumflex branches. Left main showed mild disease. LAD is totally occluded at the ostium. However, the left internal mammary graft is widely patent and attaches to the mid LAD and the mammary graft is patent and also LAD distally appears to be without significant disease. 5. The circumflex artery is occluded in the proximal one-third with very faint filling of the marginal branches. There is a faint filling of the marginal branches. At this time, his non-STEMI may be secondary to occluded circumflex artery. Considering he is asymptomatic and not having any symptoms and diffuse disease, it was felt medical therapy is appropriate. Also to be noted even though RCA is occluded in the proximal part, excellent collaterals were noted to the LV branches and PDA on LCA injection. Considering the above angiographic pictures, we would continue medical therapy and if he is symptomatic, then can consider intervention of the circumflex artery, which may be the culprit artery at this point, for non-STEMI. FINAL IMPRESSION: 1. Normal size left ventricle with akinetic anterior wall and apex. Ejection fraction 55% with normal ejection fraction. 2. Triple vessel disease with occluded proximal LAD, occluded circumflex artery and occluded RCA. The LAD is well protected by the left internal mammary graft. Widely patent saphenous vein graft to the ramus branch is visualized. Ramus branch itself is occluded at the ostium. Circumflex artery is occluded and feeling faint. This is not protected. RCA is occluded, but has good collaterals. RECOMMENDATIONS: Would continue medical therapy. If continues to be symptomatic as mentioned above, would consider intervention of the circumflex artery. The patient tolerated the procedure well. The patient was explained of the above findings. He understands. TID: [id number] RECEIPT: [id number] ZEB/IVÁN HALL
[2021-05-06] MEDS: guaiFENesin/CODEINE 100-10MG ORAL LIQD 5 ML PO PRN ×2 (15:42→22:17)
[2021-05-06] MEDS: ACETAMINOPHEN 325 MG TAB PO PRN ×2 (16:18→22:18)
[2021-05-06] MEDS ORDERED: WARFARIN 7.5 MG TAB PO SCH (17:00)
--- NOTE | 2021-05-06 19:17 | Electrocardiograph Report ---
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 No previous ECG available for comparison Electronically Signed On 05-06-2021 19:16:57 EDT by Jaswinder Asencio
--- NOTE | 2021-05-06 19:35 | Electrocardiograph Report ---
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
--- NOTE | 2021-05-06 19:50 | Electrocardiograph Report ---
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 Electronically Signed On 05-06-2021 19:49:54 EDT by Jaswinder Asencio
[2021-05-06] MEDS ORDERED: HEPARIN 5,000 UNIT/1 ML VIAL SUB-Q SCH (22:00)
[2021-05-07 04:58] LABS: Hematocrit 41.2 % (35.5-45.6); Hemoglobin 14.2 gm/dl (11.8-15.2); Mean Corpuscular HGB Conc 35 % (32-34); Mean Corpuscular Volume 92 fl (84-94); Platelet Count 168 K/mm3 (140-440); Red Blood Count 4.51 M/mm3 (3.65-5.03); Red Cell Distribution Width 13.6 % (13.2-15.2)
[2021-05-07 05:09] LABS: INR 0.97 (0.87-1.13)
[2021-05-07 05:19] LABS: BUN/Creatinine Ratio 17; Blood Urea Nitrogen 20 mg/dL (9-20); Hemolysis Index 1
[2021-05-07] MEDS: FUROSEMIDE 40 MG/4 ML INJ IV SCH (09:56)
[2021-05-07] MEDS: METOPROLOL TARTRATE 100 MG TAB PO SCH (09:56)
[2021-05-07] MEDS: INSULIN REGULAR, HUMAN 100 UNITS/1 ML SUB-Q SCH ×2 (09:57→13:56)
[2021-05-07] MEDS: LISINOPRIL 20 MG TAB PO SCH (09:57)
[2021-05-07 09:59] VITALS: BP 147/95
[2021-05-07] MEDS ORDERED: APIXABAN 5 MG TAB PO SCH (10:00)
[2021-05-07] MEDS ORDERED: ASPIRIN 81 MG TAB CHEW PO SCH (10:00)
[2021-05-07] MEDS ORDERED: CLOPIDOGREL 75 MG TAB PO SCH (10:00)
[2021-05-07] MEDS: levETIRAcetam 500 MG in DEXTROSE 5% IN WATER 100 ML IV SCH (10:04)
[2021-05-07] MEDS ORDERED: LISINOPRIL 20 MG TAB PO SCH ×2 (10:18→11:00)
--- NOTE | 2021-05-07 10:23 | Progress Note ---
Assessment and Plan Cardiac status is stabilizing. I agree with Humaira. Optimize antihypertensive regimen. Possible discharge in a.m. - Patient Problems (1) Non-ST elevated myocardial infarction Current Visit: Yes Status: Acute (2) Acute HFrEF (heart failure with reduced ejection fraction) Current Visit: Yes Status: Acute (3) LV (left ventricular) mural thrombus Current Visit: Yes Status: Acute (4) Coronary artery disease Current Visit: Yes Status: Chronic Qualifiers: Coronary Disease-Associated Artery/Lesion type: [place] artery (5) Hx of CABG Current Visit: Yes Status: Chronic (6) History of acute myocardial infarction Current Visit: Yes Status: Chronic (7) Hypertension Current Visit: Yes Status: Chronic Qualifiers: Hypertension type: essential hypertension Qualified Code(s): I10 - Essential (primary) hypertension (8) Diabetes mellitus Current Visit: Yes Status: Chronic Qualifiers: Diabetes mellitus type: type 2 Subjective Date of service: 05/07/21 Principal diagnosis: NSTEMI, CAD, s/p CABG, LV thrombus Interval history: He feels fine. No complaint. He relays a prior history of LV thrombus years ago which was treated with Coumadin and that he suffered intracranial bleed as a complication. He claims that he was subsequently switched to DOAC. Objective Vital Signs Temp Pulse Resp Resp BP Pulse Ox 05/07/21 07:45 69 98 05/07/21 07:44 69 18 147/95 96 05/07/21 04:42 98.6 F 68 18 152/96 98 05/07/21 00:01 98.2 F 70 18 146/85 98 05/06/21 23:00 18 98 05/06/21 22:18 20 05/06/21 22:17 82 148/93 05/06/21 22:00 20 05/06/21 20:10 98.7 F 82 18 148/93 96 05/06/21 17:00 99.2 F 80 19 123/78 96 05/06/21 16:00 100.6 F H 05/06/21 13:16 116/69 05/06/21 13:01 131/48 05/06/21 12:45 145/64 05/06/21 12:30 125/62 05/06/21 12:01 135/65 05/06/21 11:45 143/87 05/06/21 11:30 142/103 05/06/21 11:21 18 98 05/06/21 11:15 157/104 05/06/21 11:00 62 154/97 95 05/06/21 10:55 146/101 05/06/21 10:46 154/100 05/06/21 10:34 67 145/92 05/06/21 10:33 68 145/92 05/06/21 10:30 67 145/92 96 05/06/21 10:25 70 98 - Physical Examination General: No Apparent Distress HEENT: Positive: EOMI, Normocephaly, Mucus Membranes Moist Neck: Positive: neck supple, trachea midline Cardiac: Positive: Reg Rate and Rhythm, S1/S2 Lungs: Positive: clear to auscultation Neuro: Positive: Grossly Intact Abdomen: Positive: Soft, Active Bowel Sounds Skin: Negative: Rash Musculoskeletal: No Pain, Normal Range of Motion Extremities: Absent: edema - Labs and Meds Coagulation 05/07/21 Range/Units 04:26 PT 13.4 (12.2-14.9) Sec. INR 0.97 (0.87-1.13) CBC 05/07/21 Range/Units 04:26 WBC 9.0 (4.5-11.0) K/mm3 RBC 4.51 (3.65-5.03) M/mm3 Hgb 14.2 (11.8-15.2) gm/dl Hct 41.2 (35.5-45.6) % Plt Count 168 (140-440) K/mm3 Comprehensive Metabolic Panel 05/07/21 Range/Units 04:26 Sodium 139 (137-145) mmol/L Potassium 3.9 (3.6-5.0) mmol/L Chloride 101.2 (98-107) mmol/L Carbon Dioxide 28 (22-30) mmol/L BUN 20 (9-20) mg/dL Creatinine 1.2 (0.8-1.3) mg/dL Glucose 159 H (75-100) mg/dL Calcium 9.0 (8.4-10.2) mg/dL - Imaging and Cardiology Echo: report reviewed Cardiac cath: report reviewed (Cardiac cath (05/06/2021) shows patent coronary artery bypass grafts, no occlusive coronary artery disease) - Telemetry EKG Rhythm: Sinus Rhythm - EKG Sinus rhythms and dysrhythmias: sinus rhythm AV and intraventricular conduction: right bundle branch block
[2021-05-07 10:30] LABS: Hematocrit 42.8 % (35.5-45.6); Hemoglobin 14.2 gm/dl (11.8-15.2); Mean Corpuscular HGB Conc 33 % (32-34); Mean Corpuscular Volume 92 fl (84-94); Platelet Count 182 K/mm3 (140-440); Red Blood Count 4.66 M/mm3 (3.65-5.03); Red Cell Distribution Width 13.4 % (13.2-15.2)
--- NOTE | 2021-05-07 10:34 | Progress Note ---
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 -had aneurysm clipping -he is with residual left side weakness and left visual neglect -MRI brain is with right [employer] infarct and possible bIlateral MCA -Echo is with 40-45% EF and mural thrombus is noted !!! -LDL#54 A1C#7.3 # Resultant seizure -following bleed -seizure free X3 years -On keppra 500 mg bid #Heart failure unspecified Elevated BNP Cardiology consulted, #Diabetes mellitus type 2 A1c#7.3 poorly controlled Insulin sliding scale #Hypertension Labetalol IV and hydralazine IV as needed with parameters Continue lisinopril, metoprolol, hydrochlorothiazide -Initial JENN 169/104 --need better control BP #DVT prophylaxis: Heparin drip CODE STATUS: Full PLAN 1- EEG today 2- maintain Keppra 3- better control of BP <150/80 4- LDL,A1C noted 5- Consider AC +++ Neurology and cardiology follow up will sign off Subjective Date of service: 05/07/21 Principal diagnosis: NSTEMI, CAD, s/p CABG, LV thrombus Interval history: No chest pain today alert oriented had hearth catheter yesterday -see report CT/CTA and MRI noted Echo is remarkable for atrial thrombus Objective - Vital Sign Vital Signs - 12hr 05/06/21 05/07/21 05/07/21 23:00 00:01 04:42 Temperature 98.2 F 98.6 F Pulse Rate 70 68 Respiratory 18 18 18 Rate Blood Pressure 146/85 152/96 O2 Sat by Pulse 98 98 98 Oximetry 05/07/21 05/07/21 07:44 07:45 Temperature Pulse Rate 69 69 Respiratory 18 Rate Blood Pressure 147/95 O2 Sat by Pulse 96 98 Oximetry - General Apperance Constitutional: comfortable - EENT EENT: PERRL, mucous membranes moist - Respiratory Respiratory: chest non-tender, lungs clear, rhonchi - Cardiovascular Cardiovascular: regular rate, normal S1, normal S2 Extremities: no peripheral edema bilat, no clubbing, cyanosis - Gastrointestinal Gastrointestinal: normoactive bowel sounds - Integumentary Integumentary: normal - Neurologic Cranial nerve examination: PERRL, EOMI, intact Speech examination: intact Detailed motor examination: other (left side pronator drift , gait not done) - Laboratory Findings CBC and BMP: 05/07/21 04:26 05/07/21 04:26 Abnormal Lab Findings: Abnormal Labs 05/04/21 05/04/21 05/04/21 04:29 04:29 07:17 WBC 11.8 H Hgb Hct MCHC [place] % (Auto) [place] # (Auto) Seg Neutrophils % 76.0 H Seg Neutrophils # 8.9 H APTT Heparin Anti-Xa Level Chloride Carbon Dioxide 19 L Creatinine Glucose 229 H POC Glucose Hemoglobin A1c Troponin T 0.115 H* D NT-Pro-B Natriuret Pep 05/04/21 05/04/21 05/04/21 07:17 10:41 15:13 WBC Hgb Hct MCHC [place] % (Auto) [place] # (Auto) Seg Neutrophils % Seg Neutrophils # APTT Heparin Anti-Xa Level Chloride Carbon Dioxide Creatinine Glucose POC Glucose Hemoglobin A1c Troponin T 0.248 H* D 0.422 H* D NT-Pro-B Natriuret Pep 2789 H 05/04/21 05/04/21 05/04/21 15:54 16:22 22:19 WBC Hgb 15.8 H Hct 47.6 H MCHC [place] % (Auto) [place] # (Auto) Seg Neutrophils % Seg Neutrophils # APTT Heparin Anti-Xa Level Chloride Carbon Dioxide Creatinine Glucose POC Glucose 161 H 317 H Hemoglobin A1c Troponin T NT-Pro-B Natriuret Pep 05/04/21 05/05/21 05/05/21 23:04 02:39 02:39 WBC Hgb Hct MCHC [place] % (Auto) [place] # (Auto) Seg Neutrophils % Seg Neutrophils # APTT 48.6 H Heparin Anti-Xa Level 0.18 L Chloride Carbon Dioxide Creatinine Glucose POC Glucose Hemoglobin A1c 7.3 H Troponin T NT-Pro-B Natriuret Pep 05/05/21 05/05/21 05/05/21 02:39 02:39 07:53 WBC Hgb Hct MCHC 35 H [place] % (Auto) [place] # (Auto) Seg Neutrophils % Seg Neutrophils # APTT Heparin Anti-Xa Level Chloride Carbon Dioxide Creatinine Glucose 311 H POC Glucose 256 H Hemoglobin A1c Troponin T 0.441 H* NT-Pro-B Natriuret Pep 05/05/21 05/05/21 05/05/21 10:39 10:51 15:55 WBC Hgb Hct MCHC [place] % (Auto) [place] # (Auto) Seg Neutrophils % Seg Neutrophils # APTT 38.3 H Heparin Anti-Xa Level Chloride Carbon Dioxide Creatinine Glucose POC Glucose 258 H 300 H Hemoglobin A1c Troponin T NT-Pro-B Natriuret Pep 05/05/21 05/05/21 05/06/21 16:05 21:11 02:10 WBC Hgb Hct MCHC [place] % (Auto) 12.3 H [place] # (Auto) 1.1 H Seg Neutrophils % Seg Neutrophils # APTT Heparin Anti-Xa Level < 0.10 L Chloride Carbon Dioxide Creatinine Glucose POC Glucose 312 H Hemoglobin A1c Troponin T NT-Pro-B Natriuret Pep 05/06/21 05/06/21 05/06/21 02:10 06:59 10:54 WBC Hgb Hct MCHC [place] % (Auto) [place] # (Auto) Seg Neutrophils % Seg Neutrophils # APTT Heparin Anti-Xa Level Chloride 97.5 L Carbon Dioxide Creatinine 1.4 H Glucose 256 H POC Glucose 268 H 292 H Hemoglobin A1c Troponin T 1.720 H* D NT-Pro-B Natriuret Pep 05/06/21 05/06/21 05/06/21 15:12 17:02 21:42 WBC Hgb Hct MCHC [place] % (Auto) [place] # (Auto) Seg Neutrophils % Seg Neutrophils # APTT Heparin Anti-Xa Level < 0.10 L Chloride Carbon Dioxide Creatinine Glucose POC Glucose 329 H 276 H Hemoglobin A1c Troponin T NT-Pro-B Natriuret Pep 05/07/21 05/07/21 05/07/21 04:26 04:26 07:25 WBC Hgb Hct MCHC 35 H [place] % (Auto) [place] # (Auto) Seg Neutrophils % Seg Neutrophils # APTT Heparin Anti-Xa Level Chloride Carbon Dioxide Creatinine Glucose 159 H POC Glucose 202 H Hemoglobin A1c Troponin T NT-Pro-B Natriuret Pep
[2021-05-07 11:06] LABS: INR 1.01 (0.87-1.13)
[2021-05-07 11:07] LABS: Partial Thromboplastin Time 37.4 Sec. (24.2-36.6)
--- NOTE | 2021-05-07 12:36 | Discharge Summary ---
Providers - Providers Date of Admission: 05/04/21 15:03 Date of discharge: 05/07/21 Attending physician: MARY PENALOZA MD 05/04/21 09:32 Consult to Physician [CONS] Urgent Comment: Consulting Provider: CONNOR HORN Physician Instructions: Reason For Exam: NSTEMI, CHF 05/05/21 11:02 Consult to Physician [CONS] Routine Comment: Consulting Provider: ALONZO LUJAN Physician Instructions: Reason For Exam: pt w/hx of brain bleed, recs for anticoagulation Primary care physician: YOANDY RIVERA MD Hospitalization Reason for admission: chest pain Condition: Good Procedures: Left Heart catheterization Hospital course: 56-year-old -[place] male with past medical history as above who presents with acute chest pain NSTEMI type I versus type II History of CABG x3 in 2007 Troponins elevated but now stabilized Patient started on heparin drip EKG reviewed, no STEMI, right bundle branch block noted [facility] Left heart catheterization on 05/06/2021, no stent placed Heart failure unspecified Elevated BNP Noted echocardiogram report, LVEF 40 to 45% Furosemide 40 mg twice daily daily, will switch to furosemide 40 mg daily Diabetes mellitus type 2 Insulin sliding scale Hypertension Labetalol IV and hydralazine IV as needed with parameters Continue lisinopril, metoprolol, Isosorbide mononitrate History of seizure disorder Levetiracetam 500 mg twice daily IV Left ventricular apical thrombus Seen on echocardiogram Heparin drip has been discontinued, patient transition to Eliquis 5 mg twice daily. This is been cleared by cardiology and neurology History of traumatic bleed secondary to fall Patient was on Coumadin at the time Neurology evaluated patient, neurology stated it would be fine to proceed with left heart catheterization and to continue heparin drip. States patient can be transitioned to Eliquis twice daily History Interval history: 05/05/2021: Patient without any chest pain, tolerating diet, no nausea or vomiting 05/06/2021: Patient seen and examined after catheterization, patient without any chest pain, states that he feels better. 05/07/2021: Patient seen and examined, no chest pain or shortness of breath. Spoke with neurology and cardiology, patient can be transitioned to Eliquis. Spoke with the family, all scripts have been printed and signed. Patient will follow-up at the OR. Disposition: DC-01 TO HOME OR SELFCARE Final Discharge Diagnosis (Prints w/discharge instructions): NSTEMI type II. Acute on chronic systolic heart failure. Diabetes mellitus type 2. Hypertension. History of seizure disorder. Left ventricular apical thrombus. History of traumatic bleed secondary to fall Core Measure Documentation - Palliative Care Palliative Care/ Comfort Measures: Not Applicable - Core Measures Any of the following diagnoses?: none Exam - Physical Exam Narrative exam: General appearance: no acute distress, well-nourished EENT: PERRL, EOM intact, hearing intact, clear oral mucosa Neck: Present: supple, normal ROM Respiratory: Lungs clear to auscultation no wheezes, no rales Cardiovascular: Regular rate/rhythm, Normal S1 & S2. No gallop, rub Extremities: no ischemia, bilateral +1 pitting edema in lower extremities, normal temperature, normal color, Full ROM Abdominal: soft, no tenderness, non-distended, normal bowel sounds Integumentary: Present: clear, warm, dry no wounds, no erythema noted Psychiatric: appropriate mood/affect, intact judgment & insight Neurologic: CNII-XII intact, moves all extremities, no sensory or motor abn ormalities - Constitutional Vitals: Temp Pulse Resp BP Pulse Ox 98.6 F 78 18 147/95 98 05/07/21 04:42 05/07/21 10:00 05/07/21 10:00 05/07/21 07:44 05/07/21 11:00 Plan Activity: no restrictions Diet: low salt, low carbohydrate Follow up with: YOANDY RIVERA MD [Primary Care Provider] - 3-5 Days (please follow up with your PCP at the OR. you are diagnosed with a NSTEMI, most likely type II secondary to hypertension. He was seen by cardiology and had a left heart catheterization on 05/06/2021, however there were no stents placed. Medical management at this time. For complete records of the catheterization, please have the OR request records from [facility] in [facility].) Prescriptions: Aspirin [Aspirin BABY CHEW TAB] 81 mg PO QDAY #90 Apixaban [Eliquis] 5 mg PO Q12HR #60 tablet ISOSORBIDE MONOnitrate [Imdur ER] 60 mg PO QDAY #30 tablet Atorvastatin Calcium [Lipitor] 80 mg PO DAILY 30 Days #30 Metoprolol [Lopressor TAB] 100 mg PO BID #60 tablet Nitroglycerin [Nitrostat] 0.4 mg SL .Q5MIN PRN #20 tablet PRN Reason: Chest Pain lisinopriL [Zestril TAB] 40 mg PO DAILY #30 tablet
[2021-05-07] MEDS ORDERED: levETIRAcetam 500 MG TAB PO SCH (22:00)
[2021-05-08] MEDS ORDERED: LISINOPRIL 40 MG TAB PO SCH (10:00)
== END 2021-05-07 15:09 | disposition home or self-care (01) | DRG 282 ==
LOC: ED 03:50 → 4A 09:07 → OBSVTOIN 15:03 → 4A 19:15
PROVIDERS: ADMIT Family Medicine; ATTEND Family Medicine
PROC: 4A023N7 Measurement of Cardiac Sampling and Pressure, Left Heart, Percutaneous Approach (ICD-10-PCS; principal; 2021-05-06)
PROC: B2111ZZ Fluoroscopy of Multiple Coronary Arteries using Low Osmolar Contrast (ICD-10-PCS; 2021-05-06)
PROC: B2151ZZ Fluoroscopy of Left Heart using Low Osmolar Contrast (ICD-10-PCS; 2021-05-06)
PROC: B2181ZZ Fluoroscopy of Left Internal Mammary Bypass Graft using Low Osmolar Contrast (ICD-10-PCS; 2021-05-06)
PROC: B3101ZZ Fluoroscopy of Thoracic Aorta using Low Osmolar Contrast (ICD-10-PCS; 2021-05-06)
PROC: B41F1ZZ Fluoroscopy of Right Lower Extremity Arteries using Low Osmolar Contrast (ICD-10-PCS; 2021-05-06)
DX: I11.0 Hypertensive heart disease with heart failure (principal); I21.A1 Myocardial infarction type 2; I50.23 Acute on chronic systolic (congestive) heart failure; I42.9 Cardiomyopathy, unspecified; I25.10 Atherosclerotic heart disease of native coronary artery without angina pectoris; G40.909 Epilepsy, unspecified, not intractable, without status epilepticus; Z95.1 Presence of aortocoronary bypass graft; Z86.73 Personal history of transient ischemic attack (TIA), and cerebral infarction without residual deficits; Z86.711 Personal history of pulmonary embolism; Z79.82 Long term (current) use of aspirin; Z79.84 Long term (current) use of oral hypoglycemic drugs; E11.65 Type 2 diabetes mellitus with hyperglycemia; Z83.3 Family history of diabetes mellitus; Z82.49 Family history of ischemic heart disease and other diseases of the circulatory system; F41.9 Anxiety disorder, unspecified
CPT/HCPCS: 36415; 70450; 70496; 70498; 70551; 71045; 80048; 80053; 80061; 82565; 82962; 83036; 83880; 84484; 85014; 85018; 85025; 85027; 85049; 85520; 85610; 85730; 93005; 93306; 93459; 93567; 95819; 96374; 96375; G0378; C1760; J0360; J1644; J1815; J1940; J1953; J2250; J2405; J3010; J7040; Q9967